=== PATIENT | female | born 1950 | race Caucasian/White ===

== ENCOUNTER 2017-11-09 05:47 | Inpatient (IN) | payer MEDICARE, OTHER, SELFPAY ==
[2017-10-24 11:12] VITALS: BP 164/88; PULSE 59; RESP 16; TEMP 36.9; O2SAT 98; BMI 22.8
--- NOTE | 2017-10-24 11:29 | PCM.HP.BLA ---
History and Physical DATE OF SURGERY: 11/09/2017 SCHEDULED PROCEDURE: Right total knee arthroplasty HISTORY OF PRESENT ILLNESS: This is a 67-year-old female who is been having ongoing pain in her right knee for approximately 2 years. She states over the past 7-8 months the pain has significantly increased. Pain is intermittent, aching, and sharp. Pain is increased with any amount of walking. Pain is also increased going up and down stairs as well as prolonged standing. It occasionally awakens her at night. Patient has to use of pain medication prior to bed. She has difficult time with activities of daily living including shopping. Patient has fallen due to her right knee pain. Patient has tried conservative measures consisting of rest, ice, heat, elevation, and cortisone injection with only minimal relief. She has been on oral medications consisting of meloxicam and ibuprofen with minimal relief on ibuprofen. Patient has tried formal physical therapy with no relief in symptoms. Patient has had a previous right knee arthroscopy in 1999 for torn meniscus. She has tried [id number]-[id number] brace and orthotics with continued pain. After failing conservative measures and discussing all treatment options with Dr. Lo, the patient would like to proceed with a right knee arthroplasty. Patient has obtained surgical clearance from her primary care physician Dr. Viera. Patient does have a medical history pertinent for hypertension and previous blood clot in early . REVIEW OF SYSTEMS: ROS: Const: Denies change in appetite, fever,or weight change. CV: Denies chest pain, heart murmur and irregular heartbeat. Resp: Denies cough, pneumonia, SOB, tuberculosis and wheezing. GI: Denies constipation, diarrhea, difficulty swallowing, heartburn, nausea, bloody stools and vomiting. : . (F Genital Sx) Urinary: denies incontinence. Musculo: Denies leg swelling, limp, trouble walking and weakness. Skin: Denies Raynaud's, history of shingles and tattoo. Neuro: Denies ambulatory dysfunction, dizziness, numbness/tingling and tremor. Psych: Denies anxiety, insomnia and stress. Da/Lymph: Denies anemia, bleeding/bruising tendency and past transfusion. Reviewed, no changes. PAST MEDICAL HISTORY: Advance Care Plan: No Advance Directives Effective Date: 08/22/2017 PMH: Medical Problems: Hard of Hearing, High Blood Pressure, History Of Phlebitis, Hypercholesterolemia Accidents: Other - (09/2017) FALL IN BATHROOM AND TWISTED THE LT KNEE Surgical Hx: Appendectomy - (1997) Hysterectomy - (1997) RT Knee Arthroscopy - (1999) ROSEANN Anesthesia Complications: None Assistive Devices: Hearing Aid, Glasses Reviewed and updated. SOCIAL HISTORY: SH: Marital: .Occupation: Retired.Work Status: Retired.Hand Dominance: Right-handed. Personal Habits: Cigarette Use: Never Smoked Cigarettes.Alcohol: Denies use.Drug Use: Denies Use.Enjoy Exercising: Exercises 1-3 x/month. Reviewed, no changes. VITALS: Ht: 69.5 Wt: 156lb Wt k.762 BMI: 22.7 BP: 144/82 Pulse: 60 Resp: 16 T: 97.7 T: 36.5C ALLERGIES: Chlorthalidone MEDICATIONS: Atenolol 25 mg 1 by mouth every day, Omeprazole 20 mg 1 by mouth every day, Quinapril HCL 10 mg 1 tab PO daily, Fluticasone Nasal [place] uad, Vitamin D (Cholecalciferol) 24545 Unit 1 cap PO every other week, Loratadine 10 mg prn, Aspirin 81 mg 1 by mouth every day, Multi Vitamin 1 by mouth every day, Caltrate 1 tab PO daily, Ibuprofen 200 mg 1po qday PRE-OP EXAM: General appearance:NORMAL Other: Eyes: Conjunctivae and lids: NORMAL Pupils: ERR Ears, Nose, Mouth, and Throat: NORMAL Other: Inspection of lips, teeth and gums: NORMAL Other: Neck: Examination of neck: no masses noted. Respiratory: Assessment of respiratory effort: NORMAL Other: Auscultation of lungs: clear to auscultation no wheeses, ronchi or rales. Cardiovascular: Auscultation of heart: regular rate and rhythm, no murmur, gallops or rubs. Exam of carotid arteries: NORMAL Other: Gastrointestinal: Exam of abdomen: soft, nontender, nondistended bowel sounds present. PHYSICAL EXAMINATION: Patient walks with an antalgic gait. Patient does have positive effusion to the right knee. She has tenderness to palpation of the medial joint line. She has varus alignment which is not correctable. It is stable to varus valgus stress test. Range of motion is 10-110? of flexion. Sensations intact light touch. IMAGING STUDIES: X-rays of the right knee reveal severe tricompartmental osteoarthritis. There is severe joint space narrowing tricompartmentally with large osteophytes and bony erosions in the medial lateral compartments. IMPRESSION: 1. Severe right knee osteoarthritis 2. Hypertension 3. History of blood clot 4. Hypercholesterolemia PLAN: Dr. Lo did discuss and review with the patient all treatment options including surgical versus nonsurgical. Patient wishes to proceed with above-stated procedure. Potential risks, benefits, and complications of this procedure were discussed in detail including but not limited to , infection, nerve and blood vessel damage, persistent pain, numbness, tingling, paresthesias, blood clot, pulmonary embolism, and requirement for further surgery. The patient expressed full understanding has no further questions for the doctor. Patient does agree to proceed with the above-stated procedure and has signed the surgery consent form. ___ I have re-examined the patient. There are no clinical changes since date of exam. ___ See progress notes for changes. ___ Dictated on admission Date: Time: Signature:
--- NOTE | 2017-10-24 11:36 | HP.PCM_ITS ---
History and Physical DATE OF SURGERY: 11/09/2017 SCHEDULED PROCEDURE: Right total knee arthroplasty HISTORY OF PRESENT ILLNESS: This is a 67-year-old female who is been having ongoing pain in her right knee for approximately 2 years. She states over the past 7-8 months the pain has significantly increased. Pain is intermittent, aching, and sharp. Pain is increased with any amount of walking. Pain is also increased going up and down stairs as well as prolonged standing. It occasionally awakens her at night. Patient has to use of pain medication prior to bed. She has difficult time with activities of daily living including shopping. Patient has fallen due to her right knee pain. Patient has tried conservative measures consisting of rest , ice, heat, elevation, and cortisone injection with only minimal relief. She has been on oral medications consisting of meloxicam and ibuprofen with minimal relief on ibuprofen. Patient has tried formal physical therapy with no relief in symptoms. Patient has had a previous right knee arthroscopy in 1999 for torn meniscus. She has tried [id number] brace and orthotics with continued pain. After failing conservative measures and discussing all treatment options with Dr. Lo, the patient would like to proceed with a right knee arthroplasty. Patient has obtained surgical clearance from her primary care physician Dr. Viera. Patient does have a medical history pertinent for hypertension and previous blood clot in early . REVIEW OF SYSTEMS: ROS: Const: Denies change in appetite, fever,or weight change. CV: Denies chest pain, heart murmur and irregular heartbeat. Resp: Denies cough, pneumonia, SOB, tuberculosis and wheezing. GI: Denies constipation, diarrhea, difficulty swallowing, heartburn, nausea, bloody stools and vomiting. : . (F Genital Sx) Urinary: denies incontinence. Musculo: Denies leg swelling, limp, trouble walking and weakness. Skin: Denies Raynaud's, history of shingles and tattoo. Neuro: Denies ambulatory dysfunction, dizziness, numbness/tingling and tremor. Psych: Denies anxiety, insomnia and stress. Da/Lymph: Denies anemia, bleeding/bruising tendency and past transfusion. Reviewed, no changes. PAST MEDICAL HISTORY: Advance Care Plan: No Advance Directives Effective Date: 08/22/2017 PMH: Medical Problems: Hard of Hearing, High Blood Pressure, History Of Phlebitis, Hypercholesterolemia Accidents: Other - (09/2017) FALL IN BATHROOM AND TWISTED THE LT KNEE Surgical Hx: Appendectomy - (1997) Hysterectomy - (1997) RT Knee Arthroscopy - (1999) ROSEANN Anesthesia Complications: None Assistive Devices: Hearing Aid, Glasses Reviewed and updated. SOCIAL HISTORY: SH: Marital: .Occupation: Retired.Work Status: Retired.Hand Dominance: Right- handed. Personal Habits: Cigarette Use: Never Smoked Cigarettes.Alcohol: Denies use.Drug Use: Denies Use.Enjoy Exercising: Exercises 1-3 x/month. Reviewed, no changes. VITALS: Ht: 69.5 Wt: 156lb Wt k.762 BMI: 22.7 BP: 144/82 Pulse: 60 Resp: 16 T: 97.7 T: 36.5C ALLERGIES: Chlorthalidone MEDICATIONS: Atenolol 25 mg 1 by mouth every day, Omeprazole 20 mg 1 by mouth every day, Quinapril HCL 10 mg 1 tab PO daily, Fluticasone Nasal [place] uad, Vitamin D ( Cholecalciferol) 41054 Unit 1 cap PO every other week, Loratadine 10 mg prn, Aspirin 81 mg 1 by mouth every day, Multi Vitamin 1 by mouth every day, Caltrate 1 tab PO daily, Ibuprofen 200 mg 1po qday PRE-OP EXAM: General appearance:NORMAL Other: Eyes: Conjunctivae and lids: NORMAL Pupils: ERR Ears, Nose, Mouth, and Throat: NORMAL Other: Inspection of lips, teeth and gums: NORMAL Other: Neck: Examination of neck: no masses noted. Respiratory: Assessment of respiratory effort: NORMAL Other: Auscultation of lungs: clear to auscultation no wheeses, ronchi or rales. Cardiovascular: Auscultation of heart: regular rate and rhythm, no murmur, gallops or rubs. Exam of carotid arteries: NORMAL Other: Gastrointestinal: Exam of abdomen: soft, nontender, nondistended bowel sounds present. PHYSICAL EXAMINATION: Patient walks with an antalgic gait. Patient does have positive effusion to the right knee. She has tenderness to palpation of the medial joint line. She has varus alignment which is not correctable. It is stable to varus valgus stress test. Range of motion is 10-110? of flexion. Sensations intact light touch. IMAGING STUDIES: X-rays of the right knee reveal severe tricompartmental osteoarthritis. There is severe joint space narrowing tricompartmentally with large osteophytes and bony erosions in the medial lateral compartments. IMPRESSION: 1. Severe right knee osteoarthritis 2. Hypertension 3. History of blood clot 4. Hypercholesterolemia PLAN: Dr. Lo did discuss and review with the patient all treatment options including surgical versus nonsurgical. Patient wishes to proceed with above- stated procedure. Potential risks, benefits, and complications of this procedure were discussed in detail including but not limited to , infection , nerve and blood vessel damage, persistent pain, numbness, tingling, paresthesias, blood clot, pulmonary embolism, and requirement for further surgery. The patient expressed full understanding has no further questions for the doctor. Patient does agree to proceed with the above-stated procedure and has signed the surgery consent form. ___ I have re-examined the patient. There are no clinical changes since date of exam. ___ See progress notes for changes. ___ Dictated on admission Date: Time: Signature:
[2017-11-09] VITALS (10 sets, daily range): BP systolic 113–172; BP diastolic 63–96; PULSE 57–86; RESP 14–18; TEMP 36.3–36.9; O2SAT 94–98; BMI 22.8; BMI 22.9
[2017-11-09] MEDS: Celecoxib 200 MG Capsule 400 MG PO (06:23)
[2017-11-09] MEDS: oxyCODONE HCl Cr 10 MG Tablet PO (06:23)
[2017-11-09] MEDS: Acetaminophen 500 MG Tablet 1000 MG PO ×3 (06:24→21:30)
[2017-11-09] MEDS: Lactated Ringers 1,000 ML 999 ML IV (06:50)
[2017-11-09] MEDS: CEFAZOLIN IV (07:17)
--- NOTE | 2017-11-09 07:22 | PCM.OPRPT ---
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 Wilbur size 4 triathlon cruciate retaining distal femoral component 2. William size 4 universal tibial baseplate 3. William X3 11 mm CS polyethylene 4. Wilbur X3 35 mm asymmetric patella Brief history operative indications: 67-year-old F with history of right knee osteoarthritis with radiographic findings with loss of joint space, osteophyte formation and subchondral sclerosis. Failed conservative measures as mentioned in the H&P. Discussion of total knee arthroplasty as well as risk and benefits were discussed the patient including but not limited to blood loss, DVTs, PEs, neurovascular damage, general risk of anesthesia including loss of life, and stiffness or instability were discussed with patient. Patient demonstrated understanding and was able to sign informed consent. Procedure: On the date of procedure patient's right lower extremity was marked in the preoperative area. The patient was then taken back to the operating room where the patient was placed on the table in the supine position. All bony prominences were identified a well-padded. Anesthesia assumed control of the C-spine and airway and remained controlled throughout the remainder of the procedure. A tourniquet was placed on the right upper thigh and the leg was prepped in a sterile fashion. The surgeon then scrubbed at this time. Upon reentering the room the right lower extremity was draped in a standard orthopedic fashion. A timeout was then called and everyone agreed upon the side, the site, the procedure to be performed, patient's identity and antibiotics given. Esmarch bandage was used to exsanguinate the extremity and the tourniquet was placed up to 250 mmHg with the knee in flexion. A midline skin incision was made and sharp dissection was taken down through skin subcutaneous tissue and fat. The standard medial parapatellar incision was made and the patella was subluxed laterally. The standard deep MCL release was done and the fat pad was resected. Next our attention was directed to the femur. Navigation pins were placed, navigation was registered. The distal femoral cutting block was pinned into place and 10 mm of distal femur resection was completed. The distal femoral cut was verified with navigation. The knee was then placed in deep flexion in the standard [employer] sizing guide was used to place the femoral component in 3? external rotation based on the posterior condyles. A size 4 4-in-1 cutting block was selected and pinned into place. The anterior cut was then made and checked for notching. The subsequent anterior chamfer cuts, posterior condylar cuts and posterior chamfer cuts were made while ensuring the MCL and LCL were protected. Our attention was then turned to the tibia where the navigation pins were placed, navigation was registered. [employer] tibial cutting guide was used to make the appropriate tibial cut 90 degrees from the mechanical axis. Navigation was then used to verify the cut. A size 4 tibial base plate was selected. the knee was flexed to 90 degrees and the soft tissues and posterior osteophytes were removed from the joint. 40 cc of the periarticular injection was injected into the posterior medial corner of the joint. The appropriate trials were then placed on the femur and tibia. A trial polyethylene was trialed to ensure proper balancing and stability of the knee. Patella tracking, was then verified and corrected appropriately as needed. The appropriate tibial internal rotation was then marked with a bovie. Our attention was then directed to the patella. The patella was everted and a flat resection was made. The lug holes were drilled and the patella trial was placed. Patellar tracking was checked and deemed appropriate. Once we were happy lug holes were drilled for the femur and trial components were removed. the tibia was subluxed and pinned into place and the keel was punched and the canal was reamed. Final components were verified and opened, and cement was mixed in a vacuum. Wilbur Simplex cement was used. The wound was copiously irrigated with normal saline. When the cement was ready the components were cemented into place starting with the tibia, femur and finally the patella. The trial poly component was placed and the knee was placed in full extension. All excess cement was removed in the process. Once the cement had cured the tracking, alignment and balance were verified and a size 11 mm polyethylene component was placed. Once the final components were placed the wound was copiously irrigated with normal saline solution and the periarticular injection was given. The wound was closed in a layer pinto fashion using #1 vicryl interrupted sutures for the arthrotomy, 2-0 interrupted Vicryl suture for the subcuticular layer and kristy for final skin closure. A sterile compressive dressing was then placed. The patient was then awakened from anesthesia, transferred to the rweir and transferred to the PACU for recovery. Post op plan DVT ppx: ASA 325mg, thigh high compression stockings Follow up: in office in 2 weeks for wound check PT: to start POD #0 at hospital, outpatient PT should be arranged. Grafts/Implants Used: William triathlon total knee - Complications none - Admit VTE Documentation VTE Present on Admission: No VTE Mechan Device Prophylaxis: SCD's, Thigh High JENNIFER Hose VTE Pharm Prophylaxis ordered?: Yes
--- NOTE | 2017-11-09 09:15 | RAD_ITS ---
STUDY: X-RAY - RIGHT KNEE REASON FOR EXAM: Female, 67 years old. Total knee replacement. TECHNIQUE: 2 view(s) of the knee. COMPARISON: None. FINDINGS: The patient is status post total knee replacement. There is good alignment. Postoperative soft tissue changes. RAD/Knee 1 or 2 Views IMPRESSION: Total knee replacement. There is good alignment. Postoperative soft tissue changes. Electronically Signed: Keegan Campos MD at 9:34 EDT Tel [phone], Service support ,
[2017-11-09] MEDS: Scopolamine 1mg/72hr Patch 1 PATCH TD (10:43)
[2017-11-09] MEDS: Calcium (Elemental) 500 MG Tablet PO (10:43)
[2017-11-09] MEDS: Famotidine 20 MG Tablet PO (10:43)
[2017-11-09] MEDS: Senna/Docusate Sodium 1 Tablet 2 TABLET PO ×2 (10:44→21:30)
[2017-11-09] MEDS: Lactated Ringers 1,000 ML 125 ML IV (14:25)
[2017-11-09] MEDS: Cefazolin 1 GM/50 ML BAG IV ×2 (14:25→22:34)
[2017-11-10] MEDS: oxyCODONE 5 MG Tablet PO ×4 (02:21→19:07)
[2017-11-10 02:23] VITALS: BP 157/85; PULSE 69; RESP 16; TEMP 36.9; O2SAT 100
[2017-11-10] MEDS: Rivaroxaban 10 MG Tablet PO (05:07)
[2017-11-10] MEDS: Acetaminophen 500 MG Tablet 1000 MG PO ×3 (05:07→21:03)
--- NOTE | 2017-11-10 06:10 | PCM.PN.ORT ---
Subjective: Is doing well this morning. Denies any chest pain or shortness of breath. Pain is well controlled at this time however, she states over last hour or so she is beginning to feel more pain as the block wears off. Denies any numbness and tingling distally. No acute events were noted overnight. Objective: Postoperative radiographs reveal a stable well aligned right total knee replacement - Physical Exam General: Alert, Oriented x3, Cooperative Extremities: - - Right lower extremity: Dressing has small outlined stable distal area of saturation dry and intact Sensations intact to light touch saphenous, sural, superficial peroneal, deep peroneal, and tibial distributions Motors intact EHL, DF, PF calves are soft and supple Vital Signs Temp Pulse Resp BP Pulse Ox 98.4 F 69 16 157/85 H 100 11/10/17 02:23 11/10/17 02:23 11/10/17 02:23 11/10/17 02:23 11/10/17 02:23 Oxygen Delivery Method Room Air Weight: 160 lb 0.008 oz Body Mass Index (BMI) 22.9 Intake and Output for Last 24 Hours 11/08/17 11/09/17 11/10/17 23:59 23:59 23:59 Intake Total 3249 / 3249 901 / 901 Balance 3249 / 3249 901 / 901 Medical Necessity - Tobacco Use Smoking Status: Former smoker Assessment/Plan Postop day 1 right total knee replacement 1. DVT prophylaxis: Aspirin 2. Pain control: Currently well controlled with aspirin and oxycodone continue with current regimen 3. Physical therapy: Weight-bear as tolerated activity as tolerated 4. Disposition: Patient is doing well at this time will reassess later today to determine discharge likely today. [facility] Office:
--- NOTE | 2017-11-10 06:13 | PN.ORTHO_ITS ---
Subjective: Is doing well this morning. Denies any chest pain or shortness of breath. Pain is well controlled at this time however, she states over last hour or so she is beginning to feel more pain as the block wears off. Denies any numbness and tingling distally. No acute events were noted overnight. Objective: Postoperative radiographs reveal a stable well aligned right total knee replacement - Physical Exam General: Alert, Oriented x3, Cooperative Extremities: - - Right lower extremity: Dressing has small outlined stable distal area of saturation dry and intact Sensations intact to light touch saphenous, sural, superficial peroneal, deep peroneal, and tibial distributions Motors intact EHL, DF, PF calves are soft and supple Vital Signs Temp Pulse Resp BP Pulse Ox 98.4 F 69 16 157/85 H 100 11/10/17 02:23 11/10/17 02:23 11/10/17 02:23 11/10/17 02:23 11/10/17 02:23 Oxygen Delivery Method Room Air Weight: 160 lb 0.008 oz Body Mass Index (BMI) 22.9 Intake and Output for Last 24 Hours 11/08/17 11/09/17 11/10/17 23:59 23:59 23:59 Intake Total 3249 / 3249 901 / 901 Balance 3249 / 3249 901 / 901 Medical Necessity - Tobacco Use Smoking Status: Former smoker Assessment/Plan Postop day 1 right total knee replacement 1. DVT prophylaxis: Aspirin 2. Pain control: Currently well controlled with aspirin and oxycodone continue with current regimen 3. Physical therapy: Weight-bear as tolerated activity as tolerated 4. Disposition: Patient is doing well at this time will reassess later today to determine discharge likely today. [facility] Office:
[2017-11-10 07:44] LABS: Hemoglobin 12.8 g/dl (12.0-15.0); Mean Corp Hgb Conc 33.7 g/gl (32-36); Mean Corpuscular Hgb 30.6 pg (27.0-32.0); Mean Corpuscular Volume 90.9 fL (81-99); Mean Platelet Vol. 9.6 fl (6.2-12.0); Platelet Count 229 K/mm3 (150-450); RBC Distribution Width CV 12.4 % (11.6-14.6); RBC Distribution Width SD 40.5 fl (35.1-43.9); Red Blood Count 4.18 M/mm3 (4.2-5.4); White Blood Count 10.5 K/mm3 (4.4-11.0)
[2017-11-10 07:48] LABS: Scan Indicated on CBC? Y/N NO
[2017-11-10 07:58] LABS: Anion Gap 8 (5-15); BUN 13 mg/dL (7-18); BUN/Creat Ratio 17.9 RATIO (10-20); Calcium,Total 8.5 mg/dL (8.5-10.1); Chloride 109 mmol/L (98-107); Creatinine, Serum 0.73 mg/dL (0.55-1.02); EST Glomerular Filtration Rate 84 mL/min (>60); Est Glom Filt Rate - Afr Amer 102 mL/min (>60); Estimated Creatinine Clearance 58.23 ml/min; Glucose 81 mg/dL (74-106); Potassium 3.6 mmol/L (3.5-5.1); Sodium Level 142 mmol/L (136-145)
[2017-11-10 08:15] VITALS: BP 138/72; PULSE 63; RESP 16; TEMP 37; O2SAT 98
[2017-11-10] MEDS: Calcium (Elemental) 500 MG Tablet PO (08:19)
[2017-11-10] MEDS: Multivitamins,Therapeutic Tablet 1 TABLET PO (08:19)
--- NOTE | 2017-11-10 10:33 | CASEMGMT ---
DOTTIE JANG Face to Face with patient for initial transition planning/care coordination assessment. RN LAINE introduced self and role at [facility] [place]. Patient lying in bed, alert and oriented. Patient willing to participate in assessment and is able to answer all questions appropriately. Care providers, pharmacy, and demographics verified. See link attached. Patient wishes to discharge home and is setup with outpatient therapy with [facility] with spouse providing transportation. Patient states she has no further needs or concerns at this time. CM to follow for discharge planning needs that may arise. Disposition Plan: Patient to discharge home with outpatient, family support, and follow-up plans in place.
[2017-11-10] MEDS: Famotidine 20 MG Tablet PO (11:04)
[2017-11-10] MEDS: Lisinopril 10 MG Tablet PO (11:04)
[2017-11-10] MEDS: Pantoprazole Sodium 20 MG Tablet PO (11:04)
[2017-11-10] MEDS: Senna/Docusate Sodium 1 Tablet 2 TABLET PO ×2 (11:04→21:03)
[2017-11-10] MEDS: Atenolol 25 MG Tablet PO (11:04)
[2017-11-10 11:10] VITALS: PULSE 76
[2017-11-10 14:51] VITALS: BP 193/101; PULSE 71; RESP 16; TEMP 36.7; O2SAT 93
[2017-11-10 21:05] VITALS: BP 157/86; PULSE 71; RESP 14; TEMP 37.4; O2SAT 98
[2017-11-11 02:51] VITALS: BP 161/90; PULSE 78; RESP 14; TEMP 37; O2SAT 96
[2017-11-11] MEDS: Acetaminophen 500 MG Tablet 1000 MG PO (05:37)
[2017-11-11] MEDS: Rivaroxaban 10 MG Tablet PO (05:37)
[2017-11-11 07:14] LABS: Hematocrit 43.5 % (37-47); Hemoglobin 14.5 g/dl (12.0-15.0); Mean Corp Hgb Conc 33.3 g/gl (32-36); Mean Corpuscular Volume 90.1 fL (81-99); Mean Platelet Vol. 9.7 fl (6.2-12.0); Platelet Count 237 K/mm3 (150-450); RBC Distribution Width CV 12.7 % (11.6-14.6); RBC Distribution Width SD 41.8 fl (35.1-43.9); Red Blood Count 4.83 M/mm3 (4.2-5.4); White Blood Count 9.2 K/mm3 (4.4-11.0)
[2017-11-11 07:16] LABS: Scan Indicated on CBC? Y/N NO
[2017-11-11 07:28] VITALS: BP 145/97; PULSE 87; RESP 18; TEMP 36.8; O2SAT 95
[2017-11-11 07:34] LABS: Anion Gap 9 (5-15); BUN 10 mg/dL (7-18); Calcium,Total 8.7 mg/dL (8.5-10.1); Chloride 107 mmol/L (98-107); Creatinine, Serum 0.56 mg/dL (0.55-1.02); EST Glomerular Filtration Rate 115 mL/min (>60); Est Glom Filt Rate - Afr Amer 140 mL/min (>60); Estimated Creatinine Clearance 58.23 ml/min; Glucose 104 mg/dL (74-106); Potassium 3.5 mmol/L (3.5-5.1); Sodium Level 141 mmol/L (136-145)
[2017-11-11] MEDS: Calcium (Elemental) 500 MG Tablet PO (07:34)
[2017-11-11] MEDS: Pantoprazole Sodium 20 MG Tablet PO (07:34)
[2017-11-11] MEDS: Famotidine 20 MG Tablet PO (07:34)
[2017-11-11] MEDS: Multivitamins,Therapeutic Tablet 1 TABLET PO (07:34)
[2017-11-11] MEDS: Lisinopril 10 MG Tablet PO (07:35)
[2017-11-11] MEDS: Atenolol 25 MG Tablet PO (07:35)
--- NOTE | 2017-11-11 07:38 | PCM.PN.ORT ---
Subjective: The patient was sitting in bed upon examination. Patient denies any chest pain, shortness of breath, dizziness, lightheadedness, nausea or vomiting, or calf pain. Pain is controlled on medications. No adverse overnight events. Overall patient is doing well and feels better today. Patient does wish to go home today. Objective: Vital signs stable and afebrile. Patient is able to plantarflex and dorsiflex actively. Sensation is intact to light touch to saphenous, sural, superficial and deep peroneal, and tibial distribution. Dressing with one drop of drainage which is been stable over main dressing, minimal drainage which is been stable on distal dressing. Negative Homans bilaterally, negative signs and symptoms of DVT. - Physical Exam General: Alert, Oriented x3, Cooperative, No apparent distress Vital Signs Temp Pulse Resp BP Pulse Ox 98.2 F 87 18 145/97 H 95 11/11/17 07:28 11/11/17 07:28 11/11/17 07:28 11/11/17 07:28 11/11/17 07:28 Oxygen Delivery Method Room Air Weight: 72.575 kg Body Mass Index (BMI) 22.9 Intake and Output for Last 24 Hours 11/09/17 11/10/17 11/11/17 23:59 23:59 23:59 Intake Total 3249 / 3249 901 / 901 300 / 300 Balance 3249 / 3249 901 / 901 300 / 300 Laboratory Tests Past 24 Hrs 11/10/17 11/10/17 11/11/17 06:09 06:09 05:35 WBC 10.5 9.2 RBC 4.18 L 4.83 Hgb 12.8 14.5 Hct 38.0 43.5 MCV 90.9 90.1 MCH 30.6 30.0 MCHC 33.7 33.3 RDW 12.4 12.7 RDW Differential 40.5 41.8 Plt Count 229 237 MPV 9.6 9.7 Sodium 142 Potassium 3.6 Chloride 109 H Carbon Dioxide 25.0 Anion Gap 8 BUN 13 Creatinine 0.73 Estim Creat Clear Calc 58.23 Est GFR (MDRD) Af Amer 102 Est GFR (MDRD) Non-Af 84 BUN/Creatinine Ratio 17.9 Glucose 81 Calcium 8.5 11/11/17 05:35 WBC RBC Hgb Hct MCV MCH MCHC RDW RDW Differential Plt Count MPV Sodium 141 Potassium 3.5 Chloride 107 Carbon Dioxide 25.0 Anion Gap 9 BUN 10 Creatinine 0.56 Estim Creat Clear Calc 58.23 Est GFR (MDRD) Af Amer 140 Est GFR (MDRD) Non-Af 115 BUN/Creatinine Ratio 18.0 Glucose 104 Calcium 8.7 Medical Necessity - Tobacco Use Smoking Status: Former smoker Assessment/Plan 1. S/P right total knee arthroplasty POD #2 2. Continue Pain Medications: Tylenol and OxyIR 3. DVT Prophylaxis: Xarelto 4. PT/OT: Weightbearing as tolerated 5. H & H: 14.5/43.5, asymptomatic 6. Encouraged Incentive Spirometry 7. Disposition: Orthopedically stable, plan is for discharge home this afternoon. Patient will follow-up per postop instructions. Prescriptions have been E scribed to [facility].
--- NOTE | 2017-11-11 07:47 | DCINST_ITS ---
Discharge Diet: No Restrictions Discharge Activity: May Not Drive May shower in (days): 1 - Turned dressing away from water Ice area for (Minutes): 20 - every hour while awake. Weight Bearing Status: Weight bearing as tolerated Elevate: Operative Extremity Additional Activity Instructions:: Wear elastic stockings for 2 weeks after your surgery. Call your doctor if your incision/area has: Continuous Slow Oozing, Sudden Increased Bleeding, Increased Pain/ Swelling, Increased Redness, Foul Smelling Discharge Call your doctor if you observe: Fever of 101 or Higher, Coldness, Increased Pain, Numbness or Tingling, Change in Color, Calf discomfort, Uncontrolled pain Remove Dressing in (days):: 3 - Okay to remove on November 14, 2017 Additional Instructions: Follow [facility] postop instructions Allergies/Adverse Reactions: Allergies chlorthalidone Adverse Reaction (Verified 10/24/17 11:05) Other Medications to take at Discharge Atenolol [Tenormin (beta court)] 25 mg PO DAILY 09/20/13 Calcium (Elemental) [Caltrate-600] 600 mg PO DAILY@0800 09/20/13 Ergocalciferol [Vitamin D] 50,000 unit PO Q7D 09/20/13 Omeprazole [Prilosec] 20 mg PO DAILY 09/20/13 Quinapril HCl [Accupril] 10 mg PO DAILY 09/20/13 Aspirin [Aspir-Low] 81 mg PO DAILY 10/24/17 Fluticasone 0.05% [Flonase Nasal [place]] 1 spray NASAL DAILY PRN 10/24/17 Loratadine [Claritin] 10 mg PO DAILY PRN 10/24/17 Multivitamin [Multiple Vitamins] 1 each PO DAILY 10/24/17 Acetaminophen [Tylenol] 1,000 mg PO Q8 #90 tab 11/11/17 Oxycodone [Oxyir] 5 - 10 mg PO Q4H PRN PRN 7 Days #80 tablet 11/11/17 Rivaroxaban [Xarelto] 10 mg PO DAILY@0600 #12 tab 11/11/17 The following prescriptions were given: Oxycodone [Oxyir] 5 - 10 mg PO Q4H PRN PRN 7 Days #80 tablet PRN Reason: Mod-Severe Pain (4-10/10) Acetaminophen [Tylenol] 1,000 mg PO Q8 #90 tab Rivaroxaban [Xarelto] 10 mg PO DAILY@0600 #12 tab Primary Care Physician: Neela Viera MD [Primary Care Provider] - Please Follow Up With: [facility] When: 11/14/17 @ 10:30 am with Sushant Please Follow Up With: Andreas De La O PA-C When: 11/23/17 @ 10:30 am
[2017-11-11] MEDS: oxyCODONE 5 MG Tablet PO (09:50)
[2017-11-11 11:04] VITALS: BP 159/90; PULSE 61; RESP 18; TEMP 36.6; O2SAT 96
[2017-11-11 11:24] VITALS: BP 159/90; PULSE 61; RESP 18; TEMP 36.6; O2SAT 96
== END 2017-11-11 11:19 | disposition home or self-care (01) | DRG 470 ==
LOC: ACINP 05:48 → MS3 08:15
PROVIDERS: Admitting Provider Specialist; Family Provider Internal Medicine; PCP Internal Medicine; Visit Provider Specialist
PROC: 0SRC0J9 Replacement of Right Knee Joint with Synthetic Substitute, Cemented, Open Approach (ICD-10-PCS; CPT 27447; principal; 2017-11-09 06:45)
DX: M17.11 Unilateral primary osteoarthritis, right knee (principal); I10 Essential (primary) hypertension; E78.00 Pure hypercholesterolemia, unspecified; K21.9 Gastro-esophageal reflux disease without esophagitis; Z87.891 Personal history of nicotine dependence; Z86.718 Personal history of other venous thrombosis and embolism; Z85.828 Personal history of other malignant neoplasm of skin
CPT/HCPCS: 36415; 73560; 80048; 85027; 87081; 97110; 97162; 97165; 97530; 97802; 99251; J7120; G0463; J2405

== ENCOUNTER → 2017-12-28 08:35 | Outpatient (CLI) | payer MEDICARE, OTHER, SELFPAY ==
--- NOTE | 2017-12-28 08:45 | RAD_ITS ---
PROCEDURE: Fluoroscopic guided right shoulder Injection DATE: December 28, 2017. INDICATION: Female, 67 years old. Chronic shoulder pain. PHYSICIAN: Keegan Campos M.D. MEDICATIONS: 12 mg of betamethasone and 4 cc of 1% lidocaine. 2% Lidocaine administered subcutaneously for local anesthesia. ACCESS SITE: Right shoulder. NEEDLE: 22-gauge spinal needle. FLUOROSCOPY TIME (if supplied): (0:54) minutes/seconds FINDINGS: The risks, benefits, and alternatives to the procedure were explained to the patient. The specific risks of bleeding, infection, and neurovascular injury were detailed and accepted. Witnessed informed consent was obtained. A 22-gauge spinal needle was positioned under radiographic fluoroscopic localization. Approximately 2 cc of Isovue-300 instilled for localization purposes. Medication was then injected. The patient tolerated the procedure well without any immediate complications. The patient was placed supine with head elevated and returned to the floor in stable condition. RAD/Inj/Asp Duarte Jt Should/Hip/Knee IMPRESSION: 1. Successful fluoroscopic guided right shoulder injection. Electronically Signed: Keegan Campos MD at 10:55 EDT Tel [phone], Service support ,
--- NOTE | 2017-12-28 08:45 | RAD_ITS ---
PROCEDURE: Fluoroscopic guided left shoulder Injection DATE: December 28, 2017. INDICATION: Female, 67 years old. Chronic shoulder pain. PHYSICIAN: Keegan Campos M.D. MEDICATIONS: 12 mg of dexamethasone and 4 cc of 1% lidocaine. 2% Lidocaine administered subcutaneously for local anesthesia. ACCESS SITE: Left shoulder. NEEDLE: 22-gauge spinal needle. FLUOROSCOPY TIME (if supplied): (0:56) minutes/seconds FINDINGS: The risks, benefits, and alternatives to the procedure were explained to the patient. The specific risks of bleeding, infection, and neurovascular injury were detailed and accepted. Witnessed informed consent was obtained. A 22-gauge spinal needle was positioned under radiographic fluoroscopic localization. Approximately 2 cc of Isovue-300 instilled for localization purposes. Medication was then injected. The patient tolerated the procedure well without any immediate complications. The patient was placed supine with head elevated and returned to the floor in stable condition. RAD/Inj/Asp Duarte Jt Should/Hip/Knee IMPRESSION: 1. Successful fluoroscopic guided left shoulder injection. Electronically Signed: Keegan Campos MD at 10:58 EDT Tel [phone], Service support ,
== END ==
PROVIDERS: Family Provider Internal Medicine; PCP Internal Medicine; Visit Provider Specialist
DX: M19.011 Primary osteoarthritis, right shoulder (principal); M19.012 Primary osteoarthritis, left shoulder
CPT/HCPCS: 20610; 77002; Q9967; J0702

== ENCOUNTER → 2019-04-17 08:41 | Outpatient (CLI) | payer MEDICARE, OTHER, SELFPAY ==
[2017-11-09 10:33] VITALS: BMI 22.9
--- NOTE | 2019-04-17 08:54 | RAD_ITS ---
PROCEDURE: Fluoroscopic guided right shoulder Injection DATE: April 17, 2019 INDICATION: Female, 69 years old. Chronic shoulder pain. PHYSICIAN: Keegan Campos M.D. MEDICATIONS: 12 mg of betamethasone and 4 cc of 1% lidocaine. 2% lidocaine administered subcutaneously for local anesthesia. ACCESS SITE: Right shoulder. NEEDLE: 22-gauge spinal needle. FLUOROSCOPY TIME (if supplied): (0:27) minutes/seconds FINDINGS: The risks, benefits, and alternatives to the procedure were explained to the patient. The specific risks of bleeding, infection, and neurovascular injury were detailed and accepted. Witnessed informed consent was obtained. A 22-gauge spinal needle was positioned under radiographic fluoroscopic localization. Approximately 2 cc of ICU 300 instilled for localization purposes. Medication was then injected. The patient tolerated the procedure well without any immediate complications. RAD/Inj/Asp Duarte Jt Should/Hip/Knee IMPRESSION: 1. Successful fluoroscopic guided right shoulder injection. Electronically Signed: Keegan Campos, at 10:45 EDT , Service support ,
--- NOTE | 2019-04-17 09:25 | RAD_ITS ---
PROCEDURE: Fluoroscopic guided left shoulder Injection DATE: April 17, 2019 INDICATION: Female, 69 years old. Left shoulder pain. PHYSICIAN: Keegan Campos M.D. MEDICATIONS: 12 mg of betamethasone and 4 cc of 1% lidocaine. 2% lidocaine administered subcutaneously for local anesthesia. ACCESS SITE: Left shoulder. NEEDLE: 22-gauge spinal needle. FLUOROSCOPY TIME (if supplied): (0:34) minutes/seconds FINDINGS: The risks, benefits, and alternatives to the procedure were explained to the patient. The specific risks of bleeding, infection, and neurovascular injury were detailed and accepted. Witnessed informed consent was obtained. A 22-gauge spinal needle was positioned under radiographic fluoroscopic localization. Approximately 2 cc of ICU 300 instilled for localization purposes. Medication was then injected. The patient tolerated the procedure well without any immediate complications. RAD/Inj/Asp Duarte Jt Should/Hip/Knee IMPRESSION: 1. Successful fluoroscopic guided left shoulder injection. Electronically Signed: Keegan Campos, at 10:43 EDT , Service support ,
== END ==
PROVIDERS: Family Provider Internal Medicine; PCP Internal Medicine; Referring Provider Specialist; Visit Provider Specialist
DX: M19.011 Primary osteoarthritis, right shoulder (principal); M19.012 Primary osteoarthritis, left shoulder
CPT/HCPCS: 20610; 77002; Q9967; J0702

== ENCOUNTER → 2019-04-18 10:33 | Outpatient (CLI) | payer MEDICARE, OTHER, SELFPAY ==
[2017-11-09 10:33] VITALS: BMI 22.9
--- NOTE | 2019-04-17 18:46 | PCM.HP.BLA ---
History and Physical Date of Admission: 04/17/19 HISTORY AND PHYSICAL - BREAST COMPLAINT ? Bonnie Palma 1950 ? ? REFERRING PHYSICIAN: ??Neela Viera MD ? CHIEF COMPLAINT:???Left breast microcalcifications ? HPI: The patient is a 69 year old female with a complaint of?an abnormal mammogram. ?The patient had a mammogram on March 27, 2019?which demonstrated: ? IMPRESSION: SUSPICIOUS OF MALIGNANCY The multiple calcifications in the left breast are at an intermediate suspicion for malignancy. ?A stereotactic biopsy is recommended. ? There are multiple calcifications in the left breast superior medial quadrant posterior depth. No other significant masses or calcifications are seen in the breast. ? The patient denies a history of breast masses. ?She does not??perform a self breast exam routinely. ?She notes no skin changes. ?She denies nipple discharge. ?She notes no axillary masses. ?She notes no family history of breast problems. ?She notes no significant breast trauma or breast difficulties in the past. ? ? The patient is being seen by me today at the request of Dr.?Neela Viera MD?for my opinion and advice regarding abnormal?left breast imaging/microcalcifications.? ? PAST?MEDICAL?HISTORY PAST MEDICAL HISTORY Diagnosis Date ? Allergic rhinitis, cause unspecified ? ? Allergic rhinitis ? BCC (basal cell carcinoma), face January 2015 ? [facility] [place]--just above right lip corner ? DDD (degenerative disc disease), lumbar ? ? Disorder of bone and cartilage, unspecified ? ? Diverticulosis of colon (without mention of hemorrhage) ? ? Mitral valve disorders(424.0) ? ? Nausea and vomiting 07/20/09-07/22/09 ? missed flight ? PMH - PAST MEDICAL HISTORY OF ? ? dvt ? PMH - PAST MEDICAL HISTORY OF ? ? tendonitis left foot ? Pure hypercholesterolemia ? ? Unspecified essential hypertension ? ? Uses hearing aid 2014 ? bilateral ? PAST?SURGICAL?HISTORY PAST SURGICAL HISTORY Procedure Laterality Date ? APPENDECTOMY ? 1996 ? BREAST BIOPSY Right ? ? right breast, benign ? COLONOSCOP W/ OR W/O [facility] SPEC ? 05/12/09 ? Colonoscopy ? KNEE SCOPE,DIAGNOSTIC Right 1999 ? Arthroscopy, knee right ? PAST SURGICAL HISTORY OF ? mid ? cardiac cath OK ? REMOVAL OF OVARY/TUBE(S) ? 1996 ? Salpingo-oophorectomy bilateral ? TOTAL ABDOM HYSTERECTOMY ? 1996 ? Hysterectomy, SUKHWINDER for benign condition ? TOTAL KNEE REPLACEMENT Right 11/16/2018 ? ? ? CURRENT?MEDICATIONS Current Outpatient Medications Medication Sig Dispense Refill ? quinapril (ACCUPRIL) 5 mg tablet Take 1 tablet by mouth once daily. (Takes with 10 mg dose of quinapril) 90 tablet 3 ? atenolol (TENORMIN) 25 mg tablet Take 1 tablet by mouth once daily. 90 tablet 3 ? omeprazole (PRILOSEC) 20 mg capsule Take 1 capsule by mouth once daily. 90 capsule 3 ? quinapril (ACCUPRIL) 10 mg tablet Take 1 tablet by mouth once daily. 90 tablet 3 ? ibuprofen (MOTRIN) 200 mg tablet Take 200 mg by mouth every 6 hours as needed. ? ? ? fluticasone (FLONASE) 50 mcg/actuation nasal spray Use 1-2 Sprays in each nostril once daily. As directed by ENT ? ? ? Cholecalciferol, Vitamin D3, 10,000 unit cap 1 capsule every other week ? ? ? loratadine (CLARITIN) 10 mg tablet Take 1 tablet by mouth once daily as needed. ? ? ? Psyllium Seed-Sucrose (METAMUCIL) Powd Take 1 Tablespoonful by mouth once daily. (Patient taking differently: Take 1 Tablespoonful by mouth as needed. ) ? 0 ? ASPIRIN 81 MG TAB Take one (1) tablet daily . ? 0 ? THERAPEUTIC MULTIVITAMIN TAB Take one(1) tablet daily. ? 0 ? CALTRATE 600 1,500 MG TAB Take one(1) tablet daily. ? 0 ? No current facility-administered medications for this visit.? ? ? ALLERGIES:?Chlorthalidone ? PERSONAL HISTORY:? 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 ?Employer: [employer] ??Social Needs ?Financial resource strain: Not on file ?Food insecurity: ?Worry: Not on file ?Inability: Not on file ?Transportation needs: ?Medical: Not on file ?Non-medical: Not on file ??Tobacco Use ?Smoking status: Former Smoker ?Quit date: 08/01/1973 ?Years since quittin.7 ?Smokeless tobacco: Never Used ??Substance and Sexual Activity ?Alcohol use: Yes ?Alcohol/week: 15.0 standard drinks ?Types: 1 Glasses of Wine (5oz), 5 Cans of Beer (12oz) per week ?Comment: wine at times ?Drug use: No ?Sexual activity: Not Currently ??Lifestyle ?Physical activity: ?Days per week: Not on file ?Minutes per session: Not on file ?Stress: Not on file ??Relationships ?Social connections: ?Talks on phone: Not on file ?Gets together: Not on file ?Attends worship service: Not on file ?Active member of club or organization: Not on file ?Attends meetings of clubs or organizations: Not on file ?Relationship status: Not on file ?Intimate partner violence: ?Fear of current or ex partner: Not on file ?Emotionally abused: Not on file ?Physically abused: Not on file ?Forced sexual activity: Not on file ??Other Topics ?Concerns: ?Not on file ??Social History Narrative ?Not on file ?? ? FAMILY HISTORY:? FAMILY?HISTORY FAMILY HISTORY Problem Relation Age of Onset ? Heart Mother ? from [place] in 70's ? Hypertension Mother ? ? Hypertension Father ? ? Hypertension Sister ? ? Stroke Paternal Grandmother ? ? Coronary Artery Disease Paternal Grandfather ? ? Breast Cancer Sister ? ? other (Plasmacytoma) Sister ? ? Glaucoma Sister ? ? ? REVIEW OF SYMPTOMS: ??The review of systems data was entered by the nurse and reviewed by me ? Nursing Notes: Vanessa Mario RN ?04/12/2019 ?8:49 AM ?Signed REVIEW OF SYSTEMS: ?General:???The patient denies fatigue, denies weight loss, denies weight gain, denies feeling hot, and denies feelings of cold. ?Eyes: ?The patient denies glaucoma, notes eye injury/surgery, wears glasses or contacts. ?Ear/Nose/Throat: ?The patient denies allergies, denies hayfever, denies ear infections, and denies bloody noses. ?Cardiovascular: ?The patient denies chest pain, denies heart disease, notes high blood pressure,denies cardiac stent, denies prior heart attack, denies irregular heart beat, denies high cholesterol, ?denies poor circulation, denies heart failure, other cardiac issues, denies claudication, denies cold feet, denies peripheral arterial stent. ?Respiratory: ?The patient denies tuberculosis, denies pneumonia, denies frequent cough, denies pulmonary embolism, denies shortness of breath, and denies coughing up blood. ?Gastrointestinal: ?The patient denies difficulty swallowing, notes acid reflux, denies ulcers, denies vomiting, denies jaundice/hepatitis, denies gallbladder problems, denies black or tarry stools, denies hemorrhoids, denies bleeding from rectum, denies diverticulitis, denies constipation, denies diarrhea, denies loss of stool control, and denies hernias. ?Kidney/Bladder: ?The patient denies kidney stones, denies urine infections, and denies bloody urine. ?Skin: ?The patient denies a history of skin cancer, denies bleeding/changing moles, and denies a history of skin rash. ?Neurologic: ?The patient denies a history of epilepsy/convulsions, denies headaches, denies head/spinal injuries, and denies stroke/TIA. ?Psychiatric: ?The patient denies psychiatric medications, denies depression, and denies voices, denies substance abuse. ?Endocrine: ?The patient denies thyroid disorders, denies diabetes, and denies hormonal problems. ?Hematologic: ?The patient denies a history of bruising, denies bleeding, and denies anemia, notes blood clots. ?Infections: ?The patient denies a history of measles and mumps, denies rheumatic fever, and denies sexually transmitted diseases. ?Musculoskeletal: ?The patient denies back pain/injury, denies back problems, denies sciatica, denies knee/foot trouble, denies arthritis, or denies gout. ? ? When was patient's last Mammogram screening? 03/12/2019 ? ?Last Colonoscopy: ?05/2009 ? Vanessa Mario RN ? PHYSICAL EXAMINATION: ? General: ?The patient is 69 year old female, well nourished, well hydrated in no acute distress. ?The patient is oriented to time, place, and person. ? VITALS:?Blood pressure 146/96, pulse 79, temperature 36.3 ?C (97.3 ?F), temperature source Temporal Artery, height 176.5 cm (5' 9.5), weight 72.6 kg (160 lb), SpO2 95 %.?Body mass index is 23.29 kg/m?.? ? HEENT: ?Normal cephalic, ataumatic, pupils are equally round, sclera are anicteric, mucous membranes are moist, oropharynx is clear. ?Neck has no masses, asymmetry or lymphadenopathy. ?Thyroid is unremarkable. ? Respiratory: ?Clear to auscultation and percussion. ?Normal respiratory excursion and pattern. ? Cardiac: ?Examination is regular rate and rhythm. ? Abdominal exam: ?Soft, nontender, ?with no palpable masses. ?No hepatosplenomegaly. ?No palpable hernias. ? Rectal exam: ?exam deferred Extremities: ?no clubbing, cyanosis or edema. ?No adenopathy. ? Breast: ?Visual inspection reveals no retractions, nipple inversion, or skin changes. ?Palpation of the right breast reveals no dominant or suspicious masses. ?Palpation of the left breast reveals no dominant or suspicious masses. ?Axillary exam demonstrates no suspicious masses in either the left or right axilla. ?There is no nipple discharge expressed from either the left or right breast. ? LABORATORY VALUES: As Noted ? RADIOLOGIC STUDIES: ?As Noted ? Assessment ? IMPRESSION:?Left breast microcalcifications ? PLAN:??I plan to perform a?stereotactic biopsy of the left breast. ?The planned surgical procedure was discussed extensively with the patient. ?The risks, benefits, anticipated outcomes and possible complications were mentioned. ?My staff has also explained the procedure in understandable terms and the patient was given the option to take printed material concerning the planned procedure. ?The patient had the opportunity to ask questions concerning the planned procedure. ?The patient freely consents to the planned procedure. ? Diagnoses:?(R92.8) Abnormal finding on breast imaging ?(primary encounter diagnosis) ? My findings have been communicated to Dr.??Neela Viera MD?via shared medical record. ?This note will be forwarded to Dr. Neela Viera MD. ? Return to Clinic: The patient is instructed to follow-up with me?after the testing has been completed. ? Satish Flores MD
--- NOTE | 2019-04-18 | IMM_PTH ---
PATIENT: TIFFANIE AGUILAR LOC: [facility] U#:[id number] AGE/SX: 75/F ROOM: RE04/18/[address]: Dr. Satish Flores MD : 1950 BED: DIS: SPEC #: [id number] RECD: 04/19/19 11:42 STATUS: PRATIMA REQ #: [id number] LANDY: 04/18/19 00:[address]: Satish Flores DEPT: IMMUNOHISTOCHEMISTRY RECD BY: [place] ENTERED: 04/19/19 11:43 SP TYPE: IMMUNO OTHR DR: Dr. Neela Viera MD Tissues: Left breast, NOS Procedures: CALPONIN-1 (add) CK5-6 (add) CK8 (add) E-CAD (add) HER2 ADELA (add) KI-67 (add) P53 (add) CT (add) P40 (add) ER (initial) PHYSICIAN & INSTITUTION [place] [id number] SPECIMEN INFORMATION: Tissue Source: Left breast Clinical Info: Left UIQ microcalcifications Specimen Number: [id number] #1 & 2 CPT code: 24101, 39036 x8, 31884 x3 METHODOLOGY: Deparaffinized sections of prefer/formalin-fixed tissue or PAP/DQ stained slides are incubated with monoclonal/polyclonal antibodies/oligonucleotide probes. Localization is made via biotin free immunoperoxidase method. Appropriate controls are performed and reacted as expected. Results on target cell population are indicated in the following table: RESULTS: ANTIBODY / CLONE RESULT Block 1 E-Cad (ECH-6) positive CK8 (15buinL03) positive Calponin-1 (MI603F) positive CK5-6 (D5 & 1684) positive P40 (BC28) positive P53 (DO-7) positive Ki-67 (30-9) positive, moderate MORPHOMETRIC ANALYSIS ER (clone 6F11) negative (0%) CT (clone 16/1E2) negative (0%) Her-2Neu (clone CB11) positive (3+) Block 2 Calponin-1 (XJ939Q) positive P40 (BC28) positive The prognostic test for HER2 is performed on formalin-fixed paraffin embedded tissue. A 3+ (positive) staining pattern is defined as intense, homogeneous, complete, circumferential membranous staining in >10% of contiguous tumor cells. A similar weak (2+) staining pattern is interpreted as equivocal. [place] follow-up testing is recommended for all equivocal cases. Positivity/negativity for ER/CT is reported if > or < 1% of the tumor cells are immuno- reactive, respectively. The ASCO/CAP criteria is used for scoring. Reference: Journal of Clinical Oncology, 2013; 31:0687-2041 & 2010; 16:2123-7905. Duration of fixation: 7.5 Hrs; Sample Adequate: Yes. These assays have not been validated on decalcified tissues. Results should be interpreted with caution given the likelihood of false negativity on decalcified specimens. These tests were developed and their performance characteristics determined by [facility]. They may not have been cleared or approved by the U.S. Food and Drug Administration. The FDA has determined that such clearance or approval is not necessary. INTERPRETATION: Left breast, upper inner quadrant, stereotactic needle core biopsy: Ductal carcinoma in situ. SJ:emperatriz 04/20/19
--- NOTE | 2019-04-18 11:20 | BRBX_PTH ---
PATIENT: TIFFANIE AGUILAR LOC: [facility] U#:[id number] AGE/SX: 75/F ROOM: RE04/18/[address]: Dr. Satish Flores MD : 1950 BED: DIS: SPEC #: [id number] RECD: 04/18/19 12:23 STATUS: PRATIMA RENelson #: [id number] LANDY: 04/18/19 11:[address]: Satish Flores DEPT: SURGICAL PATHOLOGY RECD BY: Lazaro Staton ENTERED: 04/18/19 14:15 SP TYPE: BREAST BX OTHR DR: Dr. 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 Nuclear grade - high (3). Necrosis - present, central (expansive comedo necrosis). Calcification - present. See comment. ZULEYKA:emperatriz 04/19/19 COMMENT Immunohistochemistry ([id number]) supports the above diagnosis. ER/CO/Oqu1xvl studies are being performed on sections of tumor and the results from this study will be reported separately ([id number]). Case has been reviewed in consultation with Dr. Chu who concurs with the above diagnosis. IDC:AM MICROSCOPIC DESCRIPTION Slides are reviewed. GROSS DESCRIPTION Received is one container labeled with the patient's name and not further designated. The specimen consists of multiple irregular fragments of macias-yellow soft tissue that in aggregate measure 5 x 5 x 0.2 cm. The specimen is totally submitted in two cassettes. / AM:emperatriz 04/18/19 TC:0 CPT: 38170
--- NOTE | 2019-04-18 11:29 | PCM.OPRPT ---
Report of Operation Date of Procedure: 04/18/19 Pre-Operative Diagnosis: left breast microcalcifications Post-Operative Diagnosis: left breast microcalcifications - successful biopsy Surgery/Procedure Performed:: left vaccuum assisted stereotactic breast biopsy with specimen radiogram and gel marker placement microfilming document preparer: None Type of Anesthesia:: Local Specimen's removed: left breast Estimated Blood Loss (mL): minimal Description of Procedure: The patient was brought to the stereotactic suite and informed of the plan course of events. The left breast was positioned in the CC approach on the Vora stereotactic table. Mammographic image demonstrated the area of abnormality to be located in the center of the radiograph. Stereotactic images were then obtained which demonstrated good positioning of the abnormality for biopsy with good stroke yasmin parameters. The breast was cleaned with Betadine area did one percent lidocaine was used to anesthetize the skin and a small stab incision made. An 8-gauge mammotome needle was placed into the pre-fire position. Stereotactic images demonstrated good positioning around the planned biopsy site. Local anesthetic injected deeply in the breast. The needle was deployed. Post deployment images demonstrated good positioning of the planned biopsy site. Multiple vacuum-assisted samples were obtained and jcsosl-num-sbajz fashion. Specimen radiograph demonstrated micro-calcifications in the sample. A gel marker clip was deployed. Post biopsy images demonstrated good position of the clip relative the biopsy cavity. The breast was removed from compression. Steri-Strips and a dressing applied. Post procedure mammogram images were obtained.
== END ==
PROVIDERS: Family Provider Internal Medicine; PCP Internal Medicine; Referring Provider Surgery; Visit Provider Surgery
DX: D05.12 Intraductal carcinoma in situ of left breast (principal); R92.0 Mammographic microcalcification found on diagnostic imaging of breast; R92.8 Other abnormal and inconclusive findings on diagnostic imaging of breast; R92.1 Mammographic calcification found on diagnostic imaging of breast; N64.1 Fat necrosis of breast; E78.00 Pure hypercholesterolemia, unspecified; I10 Essential (primary) hypertension; Z87.891 Personal history of nicotine dependence; H40.9 Unspecified glaucoma
CPT/HCPCS: 19081; 88305; 88341; 88342; J7050

== ENCOUNTER 2019-05-16 07:26 | Day surgery (SDC) | payer MEDICARE, OTHER, SELFPAY ==
--- NOTE | 2019-05-15 17:27 | PCM.HP.BLA ---
History and Physical Date of Admission: 05/16/19 HISTORY AND PHYSICAL -?LEFT BREAST DCIS ? Bonnie Palma 1950 May 07, 2019 ? ? REFERRING PHYSICIAN: ??Neela Viera MD ? CHIEF COMPLAINT: ?BREAST ?- LEFT??- DCIS ? HPI:?The patient is a 69 year old female with a complaint of an abnormal mammogram. ?The patient had a mammogram on March 27, 2019 which demonstrated: ? IMPRESSION: SUSPICIOUS OF MALIGNANCY The multiple calcifications in the left breast are at an intermediate suspicion for malignancy. ?A stereotactic biopsy is recommended. ? There are multiple calcifications in the left breast superior medial quadrant posterior depth. No other significant masses or calcifications are seen in the breast. ? The patient denies a history of breast masses. ?She does not ?perform a self breast exam routinely. ?She notes no skin changes. ?She denies nipple discharge. ?She notes no axillary masses. ?She notes no family history of breast problems. ?She notes no significant breast trauma or breast difficulties in the past. ? I performed a left side stereotactic biopsy for her abnormal mammogram on April 18, 2019. ?The pathology returned as DCIS. ? 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 cribriform and comedo pattern. Nuclear grade ? high (3). Necrosis ? present, central (expansive ?comedo? necrosis). Calcification ? present ? ? The patient notes moderate bruising since the procedure. ? VITALS: There were no vitals taken for this visit. ? On examination, the Left breast biopsy site is clean, dry, and intact. ?There is moderate bruising of the site. Assessment IMPRESSION: status post stereotactic biopsy for Left breast DCIS. ? PLAN: ?If Bonnie notes any problems, she ?should contact me immediately. ?We extensively discussed her diagnosis of ductal carcinoma. ?She was able to ask questions and those questions were answered. ?She was given a handout extensively detailing the options for DCIS treatment. ??Discussion with the patient concerning her diagnosis lasted 30 minutes. ?I plan to proceed with surgical excision. ?I plan to perform needle localization lumpectomy. ? ? The planned surgical procedure was discussed extensively with the patient. ?The risks, benefits, anticipated outcomes and possible complications were mentioned. ?My staff has also explained the procedure in understandable terms and the patient was given the option to take printed material concerning the planned procedure. ?The patient had the opportunity to ask questions concerning the planned procedure. ?The patient freely consents to the planned procedure. ? We will tentatively plan for surgical intervention for May 16. ?She will return in 2 weeks to assure that her bruising has resolved. She returns now notes that her bruising has completely resolved. ? We extensively discussed her diagnosis and at the last visit discussed her surgical options including breast conservation surgical procedures, mastectomy without reconstruction and mastectomy with reconstruction. ?The patient has elected to undergo a left side?needle localization biopsy/lumpectomy. ? ? ? PAST?MEDICAL?HISTORY PAST MEDICAL HISTORY Diagnosis Date ? Allergic rhinitis, cause unspecified ? ? Allergic rhinitis ? BCC (basal cell carcinoma), face January 2015 ? Trillium [place]--just above right lip corner ? DDD (degenerative disc disease), lumbar ? ? Disorder of bone and cartilage, unspecified ? ? Diverticulosis of colon (without mention of hemorrhage) ? ? Mitral valve disorders(424.0) ? ? Nausea and vomiting 07/20/09-07/22/09 ? missed flight ? PMH - PAST MEDICAL HISTORY OF ? ? dvt ? PMH - PAST MEDICAL HISTORY OF ? ? tendonitis left foot ? Pure hypercholesterolemia ? ? Unspecified essential hypertension ? ? Uses hearing aid 2014 ? bilateral ? ? PAST?SURGICAL?HISTORY PAST SURGICAL HISTORY Procedure Laterality Date ? APPENDECTOMY ? 1996 ? BREAST BIOPSY Right ? ? right breast, benign ? COLONOSCOP W/ OR W/O [facility] SPEC ? 05/12/09 ? Colonoscopy ? KNEE SCOPE,DIAGNOSTIC Right 1999 ? Arthroscopy, knee right ? PAST SURGICAL HISTORY OF ? mid 90's ? cardiac cath OK ? REMOVAL OF OVARY/TUBE(S) ? 1996 ? Salpingo-oophorectomy bilateral ? [facility] GUIDE FOR BREAST BX ? 04/18/2019 ? left vvaccuum assisted stereotactic breast biopst w/specimen radiogram and gel marker placement ? TOTAL ABDOM HYSTERECTOMY ? 1996 ? Hysterectomy, SUKHWINDER for benign condition ? TOTAL KNEE REPLACEMENT Right 11/16/2018 ? ? CURRENT?MEDICATIONS Current Outpatient Medications Medication Sig Dispense Refill ? quinapril (ACCUPRIL) 5 mg tablet Take 1 tablet by mouth once daily. (Takes with 10 mg dose of quinapril) 90 tablet 3 ? atenolol (TENORMIN) 25 mg tablet Take 1 tablet by mouth once daily. 90 tablet 3 ? omeprazole (PRILOSEC) 20 mg capsule Take 1 capsule by mouth once daily. 90 capsule 3 ? quinapril (ACCUPRIL) 10 mg tablet Take 1 tablet by mouth once daily. 90 tablet 3 ? ibuprofen (MOTRIN) 200 mg tablet Take 200 mg by mouth every 6 hours as needed. ? ? ? fluticasone (FLONASE) 50 mcg/actuation nasal spray Use 1-2 Sprays in each nostril once daily. As directed by ENT ? ? ? Cholecalciferol, Vitamin D3, 10,000 unit cap 1 capsule every other week ? ? ? loratadine (CLARITIN) 10 mg tablet Take 1 tablet by mouth once daily as needed. ? ? ? Psyllium Seed-Sucrose (METAMUCIL) Powd Take 1 Tablespoonful by mouth once daily. (Patient taking differently: Take 1 Tablespoonful by mouth as needed. ) ? 0 ? ASPIRIN 81 MG TAB Take one (1) tablet daily . ? 0 ? THERAPEUTIC MULTIVITAMIN TAB Take one(1) tablet daily. ? 0 ? CALTRATE 600 1,500 MG TAB Take one(1) tablet daily. ? 0 ? No current facility-administered medications for this visit.? ? ALLERGIES:?Chlorthalidone ? PERSONAL HISTORY:? 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 ?Employer: [employer] ??Social Needs ?Financial resource strain: Not on file ?Food insecurity: ?Worry: Not on file ?Inability: Not on file ?Transportation needs: ?Medical: Not on file ?Non-medical: Not on file ??Tobacco Use ?Smoking status: Former Smoker ?Quit date: 08/01/1973 ?Years since quittin.7 ?Smokeless tobacco: Never Used ??Substance and Sexual Activity ?Alcohol use: Yes ?Alcohol/week: 15.0 standard drinks ?Types: 1 Glasses of Wine (5oz), 5 Cans of Beer (12oz) per week ?Comment: wine at times ?Drug use: No ?Sexual activity: Not Currently ??Lifestyle ?Physical activity: ?Days per week: Not on file ?Minutes per session: Not on file ?Stress: Not on file ??Relationships ?Social connections: ?Talks on phone: Not on file ?Gets together: Not on file ?Attends religion service: Not on file ?Active member of club or organization: Not on file ?Attends meetings of clubs or organizations: Not on file ?Relationship status: Not on file ?Intimate partner violence: ?Fear of current or ex partner: Not on file ?Emotionally abused: Not on file ?Physically abused: Not on file ?Forced sexual activity: Not on file ??Other Topics ?Concerns: ?Not on file ??Social History Narrative ?Not on file ? FAMILY HISTORY:? FAMILY?HISTORY FAMILY HISTORY Problem Relation Age of Onset ? Heart Mother ? from [place] in 70's ? Hypertension Mother ? ? Hypertension Father ? ? Hypertension Sister ? ? Stroke Paternal Grandmother ? ? Coronary Artery Disease Paternal Grandfather ? ? Breast Cancer Sister ? ? other (Plasmacytoma) Sister ? ? Glaucoma Sister ? ? REVIEW OF SYMPTOMS: ??The review of systems data was entered by the nurse and reviewed by me ? Nursing Notes: Vanessa Mario RN ?05/04/2019 ?1:16 PM ?Signed REVIEW OF SYSTEMS: ?General:???The patient denies fatigue, denies weight loss, denies weight gain, denies feeling hot, and denies feelings of cold. ?Eyes: ?The patient denies glaucoma, notes eye injury/surgery, wears glasses or contacts. ?Ear/Nose/Throat: ?The patient denies allergies, denies hayfever, denies ear infections, and denies bloody noses. ?Cardiovascular: ?The patient denies chest pain, denies heart disease, notes high blood pressure,denies cardiac stent, denies prior heart attack, denies irregular heart beat, denies high cholesterol, ?denies poor circulation, denies heart failure, other cardiac issues, denies claudication, denies cold feet, denies peripheral arterial stent. ?Respiratory: ?The patient denies tuberculosis, denies pneumonia, denies frequent cough, denies pulmonary embolism, denies shortness of breath, and denies coughing up blood. ?Gastrointestinal: ?The patient denies difficulty swallowing, notes acid reflux, denies ulcers, denies vomiting, denies jaundice/hepatitis, denies gallbladder problems, denies black or tarry stools, denies hemorrhoids, denies bleeding from rectum, denies diverticulitis, denies constipation, denies diarrhea, denies loss of stool control, and denies hernias. ?Kidney/Bladder: ?The patient denies kidney stones, denies urine infections, and denies bloody urine. ?Skin: ?The patient denies a history of skin cancer, denies bleeding/changing moles, and denies a history of skin rash. ?Neurologic: ?The patient denies a history of epilepsy/convulsions, denies headaches, denies head/spinal injuries, and denies stroke/TIA. ?Psychiatric: ?The patient denies psychiatric medications, denies depression, and denies voices, denies substance abuse. ?Endocrine: ?The patient denies thyroid disorders, denies diabetes, and denies hormonal problems. ?Hematologic: ?The patient denies a history of bruising, denies bleeding, and denies anemia, notes blood clots. ?Infections: ?The patient denies a history of measles and mumps, denies rheumatic fever, and denies sexually transmitted diseases. ?Musculoskeletal: ?The patient denies back pain/injury, denies back problems, denies sciatica, denies knee/foot trouble, denies arthritis, or denies gout. ? ? When was patient's last Mammogram screening? 03/12/2019 ? ?Last Colonoscopy: ?05/2009? ? ? PHYSICAL EXAMINATION: ? General: ?The patient is 69 year old female, well nourished, well hydrated in no acute distress. ?The patient is oriented to time, place, and person. ? VITALS:?Blood pressure 146/70, pulse 72, temperature 36.3 ?C (97.4 ?F), temperature source Temporal Artery, height 176.5 cm (5' 9.5), weight 73.2 kg (161 lb 6.4 oz), SpO2 97 %.?Body mass index is 23.49 kg/m?.? ? HEENT: ?Normal cephalic, ataumatic, pupils are equally round, sclera are anicteric, mucous membranes are moist, oropharynx is clear. ?Neck has no masses, asymmetry or lymphadenopathy. ?Thyroid is unremarkable. ? Respiratory: ?Clear to auscultation and percussion. ?Normal respiratory excursion and pattern. ? Cardiac: ?Examination is regular rate and rhythm. ? Abdominal exam: ?Soft, nontender, ?with no palpable masses. ?No hepatosplenomegaly. ?No palpable hernias. ? Rectal exam: ?exam deferred Extremities: ?no clubbing, cyanosis or edema. ?No adenopathy. ? Breast: ?Visual inspection reveals no retractions, nipple inversion, or skin changes. ?Palpation of the right breast reveals no dominant or suspicious masses. ?Palpation of the left breast reveals no dominant or suspicious masses. ?Axillary exam demonstrates no suspicious masses in either the left or right axilla. ?There is no nipple discharge expressed from either the left or right breast. ? LABORATORY VALUES: As Noted ? RADIOLOGIC STUDIES: ?As Noted ? Assessment ? IMPRESSION: BREAST CANCER -?LEFT??- DCIS ? PLAN: ??I plan to perform a left side?needle localization biopsy/lumpectomy. ?The planned surgical procedure was discussed extensively with the patient. ?The risks, benefits, anticipated outcomes and possible complications and alternatives were discussed. ?My staff has also explained the procedure in understandable terms and the patient was given the option to take printed material concerning the planned procedure. ?The patient had the opportunity to ask questions concerning the planned procedure. ?The patient freely consents to the planned procedure. ?? ? Anticipated Surgical Procedure/ CPT Code:?left?preoperative stereotactic guided needle placement - 97454??LUMPECTOMY - 59641-398, ?01020--468-19 ? Anticipated Anesthetic:?General ? Patient weight:??Blood pressure 146/70, pulse 72, temperature 36.3 ?C (97.4 ?F), temperature source Temporal Artery, height 176.5 cm (5' 9.5), weight 73.2 kg (161 lb 6.4 oz), SpO2 97 %.?BMI: ?Body mass index is 23.49 kg/m?. ? Planned antibiotic:?Ancef 2gm IVPB nurse practitioner manager to OR ? SCDs needed -?Yes ? Patient Service Specialist Needed -?Yes ?? ? Diagnoses:?(D05.12) Breast neoplasm, Tis (DCIS), left ?(primary encounter diagnosis) ? Return to Clinic: The patient is instructed to follow-up with me?1 week post operatively. ? Satish Flores MD
--- NOTE | 2019-05-16 | IMM_PTH ---
PATIENT: TIFFANIE AGUILAR [place] [facility] [place][id number] AGE/SX: 69/F ROOM: RE05/16/[address]: Dr. Satish Flores MD : 1950 BED: DIS: 05/16/2019 SPEC #: [id number] RECD: 05/18/19 13:25 STATUS: PRATIMA REQ #: [id number] LANDY: 05/16/19 00:[address]: Satish Flores DEPT: IMMUNOHISTOCHEMISTRY RECD BY: Alia Beach ENTERED: 05/18/19 13:27 SP TYPE: IMMUNO OTHR DR: Dr. Neela Viera MD Tissues: Left breast, NOS Procedures: CALPONIN-1 (add) CK5-6 (add) CK8 (add) E-CAD (add) HER2 ADELA (add) KI-67 (add) P53 (add) KY (add) P40 (add) ER (initial) PHYSICIAN & [address] [address] SPECIMEN INFORMATION: Tissue Source: Left breast lumpectomy Clinical Info: Left breast DCIS Specimen Number: [id number] #6 CPT code: 03983, 14180 x6, 43061 x3 METHODOLOGY: Deparaffinized sections of prefer/formalin-fixed tissue or PAP/DQ stained slides are incubated with monoclonal/polyclonal antibodies/oligonucleotide probes. Localization is made via biotin free immunoperoxidase method. Appropriate controls are performed and reacted as expected. Results on target cell population are indicated in the following table: RESULTS: ANTIBODY / CLONE RESULT Block 6 E-Cad (ECH-6) positive CK8 (52lmkoI27) positive Calponin-1 (NH125Q) negative * CK5-6 (D5 & 1684) negative * P40 (BC28) negative * P53 (DO-7) positive, moderate Ki-67 (30-9) positive, low to moderate *?positive in the area of ductal carcinoma in situ. MORPHOMETRIC ANALYSIS ER (clone [id number]) 0 KY (clone 16/1E2) 0 Her-2Neu (clone CB11) 3+ The prognostic test for HER2 is performed on formalin-fixed paraffin embedded tissue. A 3+ (positive) staining pattern is defined as intense, homogeneous, complete, circumferential membranous staining in >10% of contiguous tumor cells. A similar weak (2+) staining pattern is interpreted as equivocal. MONICO follow-up testing is recommended for all equivocal cases. Positivity/negativity for ER/KY is reported if > or < 1% of the tumor cells are immuno- reactive, respectively. The ASCO/CAP criteria is used for scoring. Reference: Journal of Clinical Oncology, 2013; 31:6110-4582 & 2010; 16:4731-9181. Duration of fixation: 10.5 Hrs; Sample Adequate: Yes. These assays have not been validated on decalcified tissues. Results should be interpreted with caution given the likelihood of false negativity on decalcified specimens. These tests were developed and their performance characteristics determined by [facility]. They may not have been cleared or approved by the U.S. Food and Drug Administration. The FDA has determined that such clearance or approval is not necessary. The above immunohistochemical/dualISH markers are ordered and reviewed by the Pathologist. INTERPRETATION: Left breast, lumpectomy with needle localization: Invasive ductal carcinoma, nuclear grade 3. Ductal carcinoma in situ. Negative for estrogen receptors (unfavorable prognostic indicator). Negative for progesterone receptors (unfavorable prognostic indicator). Positive for overexpression of UDM6xgy. SJ:emperatriz 05/21/19
--- NOTE | 2019-05-16 | BRBX_PTH ---
PATIENT: TIFFANIE AGUILAR LOC: [facility] U#:[id number] AGE/SX: 69/F ROOM: RE05/16/[address]: Dr. Satish Flores MD : 1950 BED: DIS: 05/16/2019 SPEC #: [id number] RECD: 05/16/19 10:49 STATUS: PRATIMA RENelson #: [id number] LANDY: 05/16/19 00:[address]: Satish Flores DEPT: SURGICAL PATHOLOGY RECD BY: Alia Beach ENTERED: 05/16/19 13:04 SP TYPE: BREAST BX OTHR DR: Dr. Neela Viera MD Tissues: Left breast, NOS Procedures: Surgery Specimen Level V HEADER OPERATION: Left breast lumpectomy, stereotactic needle localization PRE-OP DIAGNOSIS: Left breast cancer DCIS TISSUE SUBMITTED: Left breast lumpectomy, superficial single tail and medial double tail MICROSCOPIC DIAGNOSIS Left breast, lumpectomy with needle localization: Invasive ductal carcinoma. Ductal carcinoma in situ. See cancer summary below. SJ:emperatriz 05/18/19 INVASIVE BREAST CANCER SUMMARY: Specimen - partial breast Procedure - excision with wire-guided localization Lymph node sampling - no lymph node present Specimen integrity - single intact specimen Specimen size - 5.5 x 4.5 x 1.5 cm Specimen laterality - left Tumor site - upper inner quadrant as per clinical information Tumor size - 0.5 x 0.3 cm (measured microscopically) Tumor focality - single focus of invasive carcinoma Macroscopic and Microscopic extent of tumor: Skin - invasive carcinoma does not invade into the dermis or epidermis. Nipple - not applicable Skeletal muscle - no skeletal muscle present. Ductal carcinoma in situ (DCIS) - DCIS is present Extensive intraductal component (EIC) - positive Estimated size (extent) of DCIS - largest focus of DCIS measures 2 x 0.7 cm Number of blocks with DCIS - 7 Number of blocks examined - 12 Architectural patterns - comedo and cribriform Nuclear grade - grade 1-3 (low, intermediate and high) Necrosis - present, central (expansive comedo necrosis) Lobular carcinoma in situ (LCIS) - not identified Histologic type of invasive carcinoma - invasive ductal carcinoma (no special type). Histologic Grade (Maryan grade): Glandular/tubular differentiation - score 3 Nuclear pleomorphism - score 3 Mitotic count - score 2 Overall grade - 3 (score of 8) Margins: Margins uninvolved by invasive carcinoma. The tumor is 1.8 cm away from the closest posterior margin. Margins uninvolved by DCIS. The tumor is 0.3 cm away from the closest superior margin and is 0.4 cm away from the next closest inferior margin and 0.5 cm away from the posterior margin. Treatment effect: Response to presurgical (neoadjuvant) therapy - no known presurgical therapy. Lymph-Vascular invasion - not identified Dermal lymph-vascular invasion - not identified Lymph nodes - there are no lymph nodes present. Distant metastasis - not applicable Additional pathologic findings - extensive adenosis - Intraductal hyperplasia with focal atypia. - Changes consistent with previous biopsy site. Ancillary studies - ([id number]) ER - negative (0%) GA - negative (0%) Her2 janeth - positive (3+) Her2 by dual MONICO - not performed Microcalcifications - present in invasive carcinoma, ductal carcinoma in situ and non-neoplastic tissue. Clinical history - Please make reference to previous specimen ([id number]), left breast, upper inner quadrant microcalcification, stereotactic needle core biopsy with diagnosis of ductal carcinoma in situ. PATHOLOGIC STAGE: pT1a pNx Mx The above summary is in compliance with [employer] [place] [employer] (CAP) Cancer Protocols Checklist and [place] Joint Committee on Cancer (AJCC), Staging Manual, 8th Ed. COMMENT In multiple areas, the ductal carcinoma in situ is admixed with atypical ductal hyperplasia. Case has been reviewed in consultation with Dr. Chu who concurs with the above diagnosis. IDC:AM MICROSCOPIC DESCRIPTION Slides are reviewed. GROSS DESCRIPTION Received fresh for OR consultation labeled with the patient's name is a specimen designated left breast. The specimen consists of a lumpectomy measuring 5.5 x 4.5 x 1.5 cm and weighing 20.5 gm. Serial sections reveal a firm, macias-white lesion with cystic change measuring 1 x 0.9 x 0.5 cm and located 0.5 cm from the closest (inferior-posterior) margin of excision. An ellipse of unremarkable skin is present in the anterior surface measuring 1.7 x 0.8 cm. The specimen has been differentially inked as follows: anterior - yellow, posterior - black, superior - blue, inferior - green, medial - red and lateral - orange. The gross is reviewed with the surgeon in person. The specimen is serially sectioned and totally submitted in 12 cassettes. / AM:emperatriz 05/17/19 TC:0 CPT: 11036, 30999
--- NOTE | 2019-05-16 08:03 | BI_ITS ---
SURGICAL BREAST SPECIMEN RADIOGRAPH CLINICAL: Document presence of calcifications in biopsy specimen. FINDINGS: Specimen shows presence of calcifications. Electronically Signed: Keegan Campos, at 11:01 EDT , Service support , BI/Breast Biopsy Specimen
[2019-05-16 08:28] VITALS: BP 154/81; PULSE 56; RESP 16; TEMP 36.4; O2SAT 100; BMI 22.8
[2019-05-16] MEDS: Lactated Ringers 1,000 ML 100 ML IV (09:33)
[2019-05-16] MEDS: Cefazolin 2 GM in 0.9% Normal Saline 100 ML IV (10:02)
[2019-05-16] MEDS: Bupivacaine Mpf 0.5% 30 ML VIAL (10:56)
--- NOTE | 2019-05-16 10:58 | OP.PCM_ITS ---
Report of Operation Date of Procedure: 05/16/19 Pre-Operative Diagnosis: left breast DCIS Post-Operative Diagnosis: left breast DCIS - successful radiographic and gross margins Surgery/Procedure Performed:: left stereotactic wire localization lumpectomy cash reconciliation specialist: Júnior Aguila Type of Anesthesia:: General Anesthesiologist: Fabio Matthews - ASA2 Specimen's removed: left breast tissue Drains: none Estimated Blood Loss (mL): 10 Fluids Replaced: 600 Description of Procedure: The patient was brought to the stereotactic suite. Her left breast was positioned in the CC approach in the Moore stereotactic table. Mammogram image demonstrated the clip to be nicely centered. Stereotactic images were obtained. Planned placement of the wire was marked and an additional 15 mm of depth added to the prescribed depth. The breast was then cleaned with Betadine. Local anesthetic was injected in the breast and a 15 Kopan's wire was inserted to the prescribed depth. Stereotactic images demonstrated good positioning of the wire. The wire was deployed as an needle was withdrawn. Stereotactic images demonstrated good positioning of the wire. The breast was marked compression the wire cut to length and taped. CC and MLO views were then obtained. The patient was then brought to the operative suite. Sign was performed verifying patient, site, position, SCIP antibiotic prophylaxis-2 g of Ancef and DVT prophylaxis with SCDs. . Following this, the patient?s right breast, the patient?s left breast was then prepped and draped in the usual fashion. Timeout was performed verifying patient, site, position. The wire entered the breast at the CC position. An elliptical incision was made and dissection carried down to subcutaneous breast tissue and then flared out such that a good margin would be obtained in all axes. When the specimen was removed. The wire came from the cranial site. A solitary suture was placed at the superficial caudal site just where the dissection was changed from superficial below the breast tissue to angling deep. A double tail suture was placed along the medial aspect of the specimen. The specimen was oriented on a radiographic plate and sent for specimen radiograph. While we?re awaiting specimen radiograph, the cavity was irrigated with sterile water and aspirated. There was noted to be good hemostasis. 4 medium clips were placed at the deep cavity margins and 4 small clips at the superficial cavity margins oriented the cavity for future radiation treatment. Subcutaneous breast tissue closed with interrupted 3-0 Vicryl suture. Skin was closed with a running 4-0 Biosyn subcuticular suture. Specimen radiograph demonstrated good position of the clip relative to the biopsy site. The specimen was then brought to the pathology department. I oriented the specimen with the pathologist. Gross margins were examined and felt to be at least 1 cm. Given this, Dermabond was applied to the skin the patient was awakened and brought to recovery in stable condition. - Admit VTE Documentation VTE Present on Admission: No VTE Mechan Device Prophylaxis: SCD's VTE Pharm Prophylaxis ordered?: No
[2019-05-16 11:07] VITALS: BP 140/77; BP 154/81; PULSE 95; RESP 16; TEMP 36.1; O2SAT 98
[2019-05-16 11:15] VITALS: BP 131/70; BP 154/81; PULSE 86; RESP 16; O2SAT 98
--- NOTE | 2019-05-16 11:16 | DCINST_ITS ---
Discharge Diet: No Restrictions Discharge Activity: Return to Normal Activity May shower in (days): 3 Remove Dressing in (days):: 3 - Leave Dermabond in place. Allergies/Adverse Reactions: Allergies chlorthalidone Adverse Reaction (Verified 05/16/19 08:23) Other Medications to take at Discharge Atenolol [Tenormin (beta court)] 25 mg PO DAILY 09/20/13 Calcium (Elemental) [Caltrate-600] 600 mg PO DAILY@0800 09/20/13 Ergocalciferol [Vitamin D] 50,000 unit PO Q14D 09/20/13 Omeprazole [Prilosec] 20 mg PO DAILY 09/20/13 Quinapril HCl [Accupril] 15 mg PO DAILY 09/20/13 Aspirin [Aspir-Low] 81 mg PO DAILY 10/24/17 Fluticasone 0.05% [Flonase Nasal [place]] 1 spray NASAL DAILY PRN 10/24/17 Loratadine [Claritin] 10 mg PO DAILY PRN 10/24/17 Multivitamin [Multiple Vitamins] 1 each PO DAILY 10/24/17 Oxycodone HCl/Acetaminophen [Percocet 5/325] 1 tab PO Q4H PRN PRN 4 Days #12 tab 05/16/19 The following prescriptions were given: Oxycodone HCl/Acetaminophen [Percocet 5/325] 1 tab PO Q4H PRN PRN 4 Days #12 tab PRN Reason: Pain Prescription Printed Primary Care Physician: Neela Viera MD [Primary Care Provider] - Test Results: Test results from this visit will be discussed in further detail at your follow- up appointment, if applicable. Please Follow Up With: Satish Flores MD - [phone] When: Please call for an appointment to be seen in one week.
[2019-05-16 11:30] VITALS: BP 138/80; BP 154/81; PULSE 88; RESP 16; TEMP 36.2; O2SAT 98
[2019-05-16 12:25] VITALS: BP 154/66; BP 154/81; PULSE 62; RESP 16; TEMP 35.9; O2SAT 100
== END 2019-05-16 13:35 | disposition home or self-care (01) ==
LOC: SDC 07:26 → AC 07:27
PROVIDERS: Family Provider Internal Medicine; PCP Internal Medicine; Referring Provider Surgery; Visit Provider Surgery
PROC: (CPT 19301; principal; 2019-05-16 09:00)
DX: D05.12 Intraductal carcinoma in situ of left breast (principal); E78.00 Pure hypercholesterolemia, unspecified; I10 Essential (primary) hypertension; M51.36 Other intervertebral disc degeneration, lumbar region; K57.30 Diverticulosis of large intestine without perforation or abscess without bleeding; M89.9 Disorder of bone, unspecified; Z87.891 Personal history of nicotine dependence; K21.9 Gastro-esophageal reflux disease without esophagitis; Z86.718 Personal history of other venous thrombosis and embolism
CPT/HCPCS: 19301; 19281; 76098; 88305; 88307; 88341; 88342; J7120; J2405

== ENCOUNTER 2019-06-25 08:10 | Day surgery (SDC) | payer MEDICARE, OTHER, SELFPAY ==
--- NOTE | 2019-06-23 06:58 | HP.PCM_ITS ---
History and Physical Date of Admission: 06/25/19 HISTORY AND PHYSICAL - BREAST CANCER ? Bonnie Palma 1950 June 15, 2019 ? ? REFERRING PHYSICIAN: ??Satish Flores MD ? CHIEF COMPLAINT: ?BREAST CANCER - LEFT??- DCIS?UPSTAGED TO INVASIVE CARCINOMA ? HPI:?The patient is a 69 year old female with a complaint of an abnormal mammogram. ?The patient had a mammogram on March 27, 2019 which demonstrated: ? IMPRESSION: SUSPICIOUS OF MALIGNANCY The multiple calcifications in the left breast are at an intermediate suspicion for malignancy. ?A stereotactic biopsy is recommended. ? There are multiple calcifications in the left breast superior medial quadrant posterior depth. No other significant masses or calcifications are seen in the breast. ? The patient denies a history of breast masses. ?She does not ?perform a self breast exam routinely. ?She notes no skin changes. ?She denies nipple discharge. ?She notes no axillary masses. ?She notes no family history of breast problems. ?She notes no significant breast trauma or breast difficulties in the past. ? I performed a left side stereotactic biopsy for her abnormal mammogram on April 18, 2019. ?The pathology returned as DCIS. ? 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 cribriform and comedo pattern. Nuclear grade ? high (3). Necrosis ? present, central (expansive ?comedo? necrosis). Calcification ? present ? I performed a left needle localization lumpectomy/partial mastectomy on May 16, 2019. ?The pathology demonstrated: ? MICROSCOPIC DIAGNOSIS Left breast, lumpectomy with needle localization: ?Invasive ductal carcinoma. ?Ductal carcinoma in situ. ?See cancer summary below. ? SJ:rg ?05/18/19 ? INVASIVE BREAST CANCER SUMMARY: ??Specimen ? partial breast ??Procedure ? excision with wire-guided localization ??Lymph node sampling ? no lymph node present ??Specimen integrity ? single intact specimen ??Specimen size ? 5.5 x 4.5 x 1.5 cm ??Specimen laterality - left ??Tumor site ? upper inner quadrant as per clinical information ??Tumor size ? 0.5 x 0.3 cm (measured microscopically) ??Tumor focality ? single focus of invasive carcinoma ??Macroscopic and Microscopic extent of tumor: ?Skin ? invasive carcinoma does not invade into the dermis or epidermis. ?Nipple ? not applicable ?Skeletal muscle ? no skeletal muscle present. ??Ductal carcinoma in situ (DCIS) ? DCIS is present ???Extensive intraductal component (EIC) - positive ?Estimated size (extent) of DCIS ? largest focus of DCIS measures 2 x 0.7 cm ?Number of blocks with DCIS - 7 ?Number of blocks examined - 12 ??Architectural patterns ? comedo and cribriform ?Nuclear grade ? grade 1-3 (low, intermediate and high) ?Necrosis ? present, central (expansive comedo necrosis) ??Lobular carcinoma in situ (LCIS) ? not identified ??Histologic type of invasive carcinoma ? invasive ductal carcinoma (no special type). ??Histologic Grade ([place] grade): ?Glandular/tubular differentiation - score 3 ?Nuclear pleomorphism - score 3 ?Mitotic count ? score 2 ?Overall grade - 3 (score of 8) ??Margins: ?Margins uninvolved by invasive carcinoma. ?The tumor is 1.8 cm away from the closest posterior margin. ?Margins uninvolved by DCIS. ?The tumor is 0.3 cm away from the closest superior margin and is 0.4 cm away from the next closest inferior margin and 0.5 cm away from the posterior margin. ??Treatment effect: ?Response to presurgical (neoadjuvant) therapy - no known presurgical therapy. ??Lymph-Vascular invasion ? not identified ??Dermal lymph-vascular invasion ? not identified ??Lymph nodes ? there are no lymph nodes present. ??Distant metastasis ? not applicable ??Additional pathologic findings ? extensive adenosis ?- Intraductal hyperplasia with focal atypia. ?- Changes consistent with previous biopsy site. ??Ancillary studies ? ([id number]) ?ER ? negative (0%) ?OK ? negative (0%) ?Her2 janeth ? positive (3+) ?Her2 by dual MONICO - not performed ??Microcalcifications ? present in invasive carcinoma, ductal carcinoma in situ and non-neoplastic tissue. ??Clinical history - Please make reference to previous specimen ([id number]), left breast, upper inner quadrant microcalcification, stereotactic needle core biopsy with diagnosis of ductal carcinoma in situ. ? ??PATHOLOGIC STAGE: ?pT1a ?pNx ?Mx ? The above summary is in compliance with [employer] [place] [employer] (CAP) Cancer Protocols Checklist and [place] Joint Committee on Cancer (AJCC), Staging Manual, 8th Ed. ? COMMENT In multiple areas, the ductal carcinoma in situ is admixed with atypical ductal hyperplasia. ? Case has been reviewed in consultation with Dr. Chu who concurs with the above diagnosis. IDC:AM ? ? Bonnie notes no significant issues since surgery. ?Post operative pain has been well controlled. ?The patient denies nausea. ?The patient`s appetite has been good. ? ? We extensively discussed her diagnosis and at the last visit discussed her surgical options including breast conservation surgical procedures, mastectomy without reconstruction and mastectomy with reconstruction. ?The patient has elected to undergo a left side?sentinel lymph node biopsy with possible axillary dissection. ? ? ? PAST MEDICAL HISTORY PAST MEDICAL HISTORY Diagnosis Date ? Allergic rhinitis, cause unspecified ? ? Allergic rhinitis ? BCC (basal cell carcinoma), face January 2015 ? [facility] [place]--just above right lip corner ? DDD (degenerative disc disease), lumbar ? ? Disorder of bone and cartilage, unspecified ? ? Diverticulosis of colon (without mention of hemorrhage) ? ? Mitral valve disorders(424.0) ? ? Nausea and vomiting 07/20/09-07/22/09 ? missed flight ? PMH - PAST MEDICAL HISTORY OF ? ? dvt ? PMH - PAST MEDICAL HISTORY OF ? ? tendonitis left foot ? Pure hypercholesterolemia ? ? Unspecified essential hypertension ? ? Uses hearing aid 2014 ? bilateral ? ? PAST SURGICAL HISTORY PAST SURGICAL HISTORY Procedure Laterality Date ? APPENDECTOMY ? 1996 ? BREAST BIOPSY Right ? ? right breast, benign ? BREAST LUMPECTOMY HX ? 05/16/2019 ? left stereotactic wire localization lumpectomy ? COLONOSCOP W/ OR W/O BRSH SPEC ? 05/12/09 ? Colonoscopy ? COLONOSCOP W/ OR W/O BRSH SPEC ? 05/14/2019 ? Colonoscopy ? KNEE SCOPE,DIAGNOSTIC Right 1999 ? Arthroscopy, knee right ? PAST SURGICAL HISTORY OF ? mid s ? cardiac cath OK ? REMOVAL OF OVARY/TUBE(S) ? 1996 ? Salpingo-oophorectomy bilateral ? [facility] FOR BREAST BX ? 04/18/2019 ? left vvaccuum assisted stereotactic breast biopst w/specimen radiogram and gel marker placement ? TOTAL ABDOM HYSTERECTOMY ? 1996 ? Hysterectomy, SUKHWINDER for benign condition ? TOTAL KNEE REPLACEMENT Right 11/16/2018 ? ? CURRENT MEDICATIONS Current Outpatient Medications Medication Sig Dispense Refill ? atenolol (TENORMIN) 25 mg tablet Take 1 tablet by mouth once daily. 90 tablet 3 ? omeprazole (PRILOSEC) 20 mg capsule Take 1 capsule by mouth once daily. 90 capsule 3 ? quinapril (ACCUPRIL) 10 mg tablet Take 1 tablet by mouth once daily. 90 tablet 3 ? quinapril (ACCUPRIL) 5 mg tablet Take 1 tablet by mouth once daily. (Takes with 10 mg dose of quinapril) 90 tablet 3 ? ibuprofen (MOTRIN) 200 mg tablet Take 200 mg by mouth every 6 hours as needed. ? ? ? fluticasone (FLONASE) 50 mcg/actuation nasal spray Use 1-2 Sprays in each nostril once daily. As directed by ENT ? ? ? Cholecalciferol, Vitamin D3, 10,000 unit cap 1 capsule every other week ? ? ? loratadine (CLARITIN) 10 mg tablet Take 1 tablet by mouth once daily as needed. ? ? ? Psyllium Seed-Sucrose (METAMUCIL) Powd Take 1 Tablespoonful by mouth once daily. (Patient taking differently: Take 1 Tablespoonful by mouth as needed. ) ? 0 ? ASPIRIN 81 MG TAB Take one (1) tablet daily . ? 0 ? THERAPEUTIC MULTIVITAMIN TAB Take one(1) tablet daily. ? 0 ? CALTRATE 600 1,500 MG TAB Take one(1) tablet daily. ? 0 ? No current facility-administered medications for this visit.? ? ALLERGIES:?Chlorthalidone ? PERSONAL HISTORY:? SOCIAL HISTORY Social History ? Tobacco Use ? Smoking status: Former Smoker ? ? Packs/day: 0.50 ? ? Years: 5.00 ? ? Pack years: 2.50 ? ? Types: Cigarettes ? ? Last attempt to quit: 08/01/1973 ? ? Years since quittin.9 ? Smokeless tobacco: Never Used Substance Use Topics ? Alcohol use: Yes ? ? Alcohol/week: 15.0 standard drinks ? ? Types: 1 Glasses of Wine (5oz), 5 Cans of Beer (12oz) per week ? ? Comment: usually a beer or glass of wine a day ? Drug use: No ? FAMILY HISTORY:? FAMILY HISTORY FAMILY HISTORY Problem Relation Age of Onset ? Heart Mother ? from [place] in 70's ? Hypertension Mother ? ? Hypertension Father ? ? Hypertension Sister ? ? Stroke Paternal Grandmother ? ? Coronary Artery Disease Paternal Grandfather ? ? Breast Cancer Sister ? ? other (Plasmacytoma) Sister ? ? Glaucoma Sister ? ? REVIEW OF SYMPTOMS: ??The review of systems data was entered by the nurse and reviewed by me ? There are no exam notes on file for this visit. ? ? PHYSICAL EXAMINATION: ? General: ?The patient is 69 year old female, well nourished, well hydrated in no acute distress. ?The patient is oriented to time, place, and person. ? VITALS:?Blood pressure 160/100, pulse 66, temperature 36.4 ?C (97.5 ?F), temperature source Temporal Artery, weight 73.5 kg (162 lb), SpO2 96 %.?Body mass index is 23.58 kg/m?.? ? HEENT: ?Normal cephalic, ataumatic, pupils are equally round, sclera are anicteric, mucous membranes are moist, oropharynx is clear. ?Neck has no masses, asymmetry or lymphadenopathy. ?Thyroid is unremarkable. ? Respiratory: ?Clear to auscultation and percussion. ?Normal respiratory excursion and pattern. ? Cardiac: ?Examination is regular rate and rhythm. ? Abdominal exam: ?Soft, nontender, ?with no palpable masses. ?No hepatosplenomegaly. ?No palpable hernias. ? Rectal exam: ?exam deferred Extremities: ?no clubbing, cyanosis or edema. ?No adenopathy. ? Breast: ?Visual inspection reveals no retractions, nipple inversion, or skin changes. ?Palpation of the right breast reveals no dominant or suspicious masses, but multiple benign-feeling nodules. ?Palpation of the left breast reveals no dominant or suspicious masses and?a well-healing incision in the 12:00 position consistent with her recent lumpectomy site. ?Axillary exam demonstrates no suspicious masses in either the left or right axilla. ?There is no nipple discharge expressed from either the left or right breast. ? LABORATORY VALUES: As Noted ? RADIOLOGIC STUDIES: ?As Noted ? Assessment ? IMPRESSION: BREAST CANCER -?LEFT??- DCIS?UPSTAGED TO INVASIVE CARCINOMA ? PLAN: ??I plan to perform a left side?sentinel lymph node biopsy with possible axillary dissection. ?The planned surgical procedure was discussed extensively with the patient. ?The risks, benefits, anticipated outcomes and possible complications and alternatives were discussed. ?My staff has also explained the procedure in understandable terms and the patient was given the option to take printed material concerning the planned procedure. ?The patient had the opportunity to ask questions concerning the planned procedure. ?The patient freely consents to the planned procedure. ?? ? Anticipated Surgical Procedure/ CPT Code:?LEFT?SENTINEL LYMPH NODE BIOPSY, radiotracer identification - ?[id number], ?[id number], [id number] ? Anticipated Anesthetic:?General ? Patient weight:??Blood pressure 160/100, pulse 66, temperature 36.4 ?C (97.5 ?F), temperature source Temporal Artery, weight 73.5 kg (162 lb), SpO2 96 %.?BMI: ?Body mass index is 23.58 kg/m?. ? Planned antibiotic:?Ancef 2gm IVPB utilization supervisor to OR ? SCDs needed -?Yes ? Marketing Recruiter Needed -?Yes ?? ? Diagnoses:?(D05.12) Breast neoplasm, Tis (DCIS), left ?(primary encounter diagnosis) (C50.812, ?Z17.1) Malignant neoplasm of overlapping sites of left breast in female, estrogen receptor negative (HCC) ? Return to Clinic: The patient is instructed to follow-up with me?1 week post operatively. ? Satish Flores MD
--- NOTE | 2019-06-25 | IMM_PTH ---
PATIENT: TIFFANIE AGUILAR LOC: [facility] [place] U#:[id number] AGE/SX: 69/F ROOM: RE06/25/[address]: Dr. Satish Flores MD : 1950 BED: DIS: 06/25/2019 SPEC #: [id number] RECD: 06/26/19 14:45 STATUS: SOUDee REQ #: [id number] LANDY: 06/25/19 00:[address]: Satish Flores DEPT: IMMUNOHISTOCHEMISTRY RECD BY: Alia Beach ENTERED: 06/26/19 14:45 SP TYPE: IMMUNO OTHR DR: Dr. Neela Viera MD Tissues: A - Axillary lymph node, NOS B - Axillary lymph node, NOS Procedures: Pankeratin (add) CK7 (initial) PHYSICIAN & INSTITUTION [place] [id number] SPECIMEN INFORMATION: Tissue Source: A - Left axillary sentinel lymph node, B - Left axillary sentinel lymph nodes Clinical Info: Left breast cancer Specimen Number: [id number] A & B CPT code: 56632 x2, 89573 x2 METHODOLOGY: Deparaffinized sections of prefer/formalin-fixed tissue or PAP/DQ stained slides are incubated with monoclonal/polyclonal antibodies/oligonucleotide probes. Localization is made via biotin free immunoperoxidase method. Appropriate controls are performed and reacted as expected. Results on target cell population are indicated in the following table: RESULTS: ANTIBODY / CLONE RESULT Block A CK7 (OV-TL12/30) negative AE1-3 (AE1/AE3/PCK26) negative Block B CK7 (OV-TL12/30) negative AE1-3 (AE1/AE3/PCK26) negative These tests were developed and their performance characteristics determined by [facility]. They may not have been cleared or approved by the U.S. Food and Drug Administration. The FDA has determined that such clearance or approval is not necessary. The above immunohistochemical/dualISH markers are ordered and reviewed by the Pathologist. INTERPRETATION: A. Left axillary sentinel lymph node, biopsy: One out of one lymph node negative for carcinoma. B. Left axillary sentinel lymph nodes, biopsy: Two out of two lymph nodes negative for carcinoma. AM:emperatriz 06/27/19
--- NOTE | 2019-06-25 | AXNB_PTH ---
PATIENT: TIFFANIE AGUILAR LOC: [facility] – [place] U#:[id number] AGE/SX: 69/F ROOM: RE06/25/[address]: Dr. Satish Floers MD : 1950 BED: DIS: 06/25/2019 SPEC #: [id number] RECD: 06/25/19 12:37 STATUS: PRATIMA RENelson #: [id number] LANDY: 06/25/19 00:[address]: Satish Flores DEPT: SURGICAL PATHOLOGY RECD BY: Alia Beach ENTERED: 06/25/19 13:55 SP TYPE: AX NODE BX OTHR DR: Dr. Neela Viera MD Tissues: A - Axillary lymph node, NOS B - Axillary lymph node, NOS C - Axillary lymph node, NOS Procedures: Frozen Section (charge) Surgery Specimen Level IV Surgery Specimen Level V HEADER OPERATION: [place] lymph node with radiotracer PRE-OP DIAGNOSIS: Left breast cancer TISSUE SUBMITTED: A - Second lymph node, left breast, B - Radioactive lymph node, left breast, marked by stitch, C - Lymph nodes, left breast for permanent FROZEN SECTION DIAGNOSIS A. Left axillary sentinel lymph node, biopsy: One out of one lymph node, negative for carcinoma. B. Left axillary sentinel lymph nodes, biopsy: Two out of two lymph nodes, negative for carcinoma. AM:emperatriz 06/25/19 Case has been reviewed in consultation with Dr. Willard who concurs with the above diagnosis. IDC:SJ MICROSCOPIC DIAGNOSIS A. Left axillary sentinel lymph node, biopsy: One out of one lymph node, negative for carcinoma. See comment. B. Left axillary sentinel lymph nodes, biopsy: Two out of two lymph nodes, negative for carcinoma. See comment. C. Left breast tissue, biopsy: Fibrofatty and fibrovascular tissue. No evidence of malignancy. See comment. AM:emperatriz 06/26/19 COMMENT A & B. Immunohistochemistry ([id number]) supports the above diagnosis. C. No lymph nodes are identified. Reference is made to the patient's left breast lumpectomy from 05/18/19 ([id number]) in which invasive ductal carcinoma was identified. MICROSCOPIC DESCRIPTION Slides are reviewed. GROSS DESCRIPTION A - Received fresh for frozen section consultation labeled with the patient's name is a specimen designated second radioactive lymph node, left breast. The specimen consists of an irregular fragment of macias-yellow fibrofatty tissue measuring 3 x 1.5 x 0.5 cm. Dissection reveals a single nodule measuring 1 cm in greatest dimension. The nodule is submitted in its entirety for frozen section consultation in one block. / AM:emperatriz 06/25/19 B - Received fresh for frozen section consultation labeled with the patient's name is a specimen designated radioactive lymph node, left breast. The specimen consists of an irregular fragment of macias-yellow fibrofatty tissue measuring 4 x 2.5 x 1 cm. Dissection reveals two nodules ranging in size from 0.7 to 1 cm. The nodules are submitted in their entirety for frozen section consultation in one block. / AM:emperatriz 06/25/19 C - Received fresh labeled with the patient's name is a specimen designated lymph nodes, left breast for permanent. The specimen consists of two pieces of yellow adipose tissue measuring in aggregate 4 x 2.5 x 1 cm. No obvious lymph node tissue is identified. The entire specimen is submitted in three cassettes. / SJ:emperatriz 06/25/19 TC:5 CPT: 38008 x2, 18783, 60098 x2
[2019-06-25] MEDS: Lactated Ringers 1,000 ML 75 ML IV (07:00)
--- NOTE | 2019-06-25 08:30 | NM_ITS ---
1.1 MCI of Tc-99 sulfur colloid was presented in 4 1cc syringes , subdermal injections were done at at 12, 3, 6 and 9 O'clock around the scar where the patient had lumpectomy each one of these injections formed a wheal, this was followed by massage of the area by the patient, she was transferred to the relevant section to check the radioactivity in any lymph node. The patient tolerated the procedure. NM/Lymph Node Injection Only IMPRESSION: Uneventful sentinel injection Electronically Signed: Young Taylor, at 9:43 EST Tel , Service support ,
[2019-06-25 08:54] VITALS: BP 180/91; PULSE 63; RESP 16; TEMP 36.6; O2SAT 99; BMI 22.6
[2019-06-25] MEDS: Isosulfan Blue 1% 5 ML Vial (11:27)
[2019-06-25] MEDS: Cefazolin 2 GM in 0.9% Normal Saline 100 ML IV (11:36)
--- NOTE | 2019-06-25 12:27 | BI_ITS ---
SURGICAL BREAST SPECIMEN RADIOGRAPH CLINICAL: Document presence of lesion in biopsy specimen. FINDINGS: Specimen shows presence of irregular density and another well-demarcated density. No microcalcifications noted Pathology is pending and an addendum to the biopsy report will be performed after the final pathologic diagnosis is rendered. Electronically Signed: Young Taylor, at 15:04 EST Tel , Service support , BI/Breast Biopsy Specimen
[2019-06-25] MEDS: Bupivacaine Mpf 0.5% 30 ML VIAL (12:42)
--- NOTE | 2019-06-25 12:50 | PCM.OPRPT ---
Report of Operation Date of Procedure: 06/25/19 Pre-Operative Diagnosis: left breast cancer Post-Operative Diagnosis: left breast cancer 3/3 negative lymph nodes Surgery/Procedure Performed:: left axillary sentinal lymph node biopsy with radiotracer and lymphazurin blue dye Specimen's removed: left axillary nodes Estimated Blood Loss (mL): 10 Fluids Replaced: 500 Description of Procedure: The patient was then brought to the operative suite. Sign was performed verifying patient, site, position, SCIP antibiotic prophylaxis-2 g of Ancef and DVT prophylaxis with SCDs. Following an LMA anesthesia, 5 cc of a 50-50 mixture of lymphazuriblue and normal saline was injected into sappey's plexus. The breast was then massaged. Evaluation of the axilla with the neoprobe demonstrated an area of activity in the low axilla just lateral to the pectoralis muscle. This site was marked. The patient?s left breast, axilla, arm and neck were then prepped and draped in the usual fashion. Timeout was performed verifying patient, site, position. Local anesthetic was injected at the marked site and the incision made in the low anterior axilla. Dissection carried down through subcutaneous tissues. A blue lymphatic duct was identified and tracked back to no nicely identifiable nodes.. the neoprobe was then used to identify lymph nodes within the axillary fat pad. 2 lymph nodes were identified and dissected and removed. The largest lymph node in this group had a count of 400. Scanning the armpit again demonstrated radioactivity. An additional node was then dissected free from the surrounding structures. After was removed, it was evaluated with the neoprobe and contained approximately 200 counts. The neoprobe was then used to assess the axilla through the incision. No additional lymph nodes were palpated. There was an area running along the lymphatic duct which had approximately 15 counts. This area was then dissected and excised and sent for permanent specimen. A small clip was placed along the proximal blue lymphatic duct. There was good hemostasis in the small sentinel node dissection area. Subcutaneous tissues closed with interrupted 3-0 Vicryl suture. Skin was closed with a running 4-0 Biosyn subcuticular suture. Verbal report from the pathologist demonstrated 3 negative left sentinel lymph nodes. - Admit VTE Documentation VTE Present on Admission: No VTE Mechan Device Prophylaxis: SCD's VTE Pharm Prophylaxis ordered?: No
[2019-06-25 12:57] VITALS: BP 136/83; BP 180/91; PULSE 88; RESP 16; TEMP 36.3; O2SAT 97
[2019-06-25 13:00] VITALS: BP 148/89; BP 180/91; PULSE 88; RESP 16; O2SAT 98
--- NOTE | 2019-06-25 13:02 | DCINST_ITS ---
Discharge Diet: No Restrictions Discharge Activity: May Not Drive - for 2-3 days or while taking narcotic pain meds. May shower in (days): 1 Lifting Restrictions: 10 pounds for 1 week. Call your doctor if your incision/area has: Continuous Slow Oozing, Sudden In creased Bleeding Call your doctor if you observe: Fever of 101 or Higher Suture Line Care: Avoid Pulling/Pushing, Avoid Pinching/Bending Remove Dressing in (days):: 1 - Remove bulky dressing tomorrow. May leave any opsite dressing for 3-4 days. Keep dressing in place until your follow-up appointment. Additional Dressing/Incision Instructions:: May leave any opsite dressing for 3- 4 days. may shower over the dressing and once the dressing is removed Allergies/Adverse Reactions: Allergies chlorthalidone Adverse Reaction (Verified 06/25/19 08:52) Other Medications to take at Discharge Atenolol [Tenormin (beta court)] 25 mg PO DAILY 09/20/13 Calcium (Elemental) [Caltrate-600] 600 mg PO DAILY@0800 09/20/13 Ergocalciferol [Vitamin D] 50,000 unit PO Q14D 09/20/13 Omeprazole [Prilosec] 20 mg PO DAILY 09/20/13 Quinapril HCl [Accupril] 15 mg PO DAILY 09/20/13 Aspirin [Aspir-Low] 81 mg PO DAILY 10/24/17 Fluticasone 0.05% [Flonase Nasal [place]] 1 spray NASAL DAILY PRN 10/24/17 Loratadine [Claritin] 10 mg PO DAILY PRN 10/24/17 Multivitamin [Multiple Vitamins] 1 each PO DAILY 10/24/17 Hydrocodone Bitart/Apap 5-325 [[place] 5/325] 1 - 2 tab PO Q6H PRN PRN 5 Days #10 tab 06/25/19 The following prescriptions were given: Hydrocodone Bitart/Apap 5-325 [[place] 5/325] 1 - 2 tab PO Q6H PRN PRN 5 Days #10 tab PRN Reason: Pain Score 1-12/08 Prescription Printed Primary Care Physician: Neela Viera MD [Primary Care Provider] - Please Follow Up With: Satish Flores MD When: 10 days
[2019-06-25 13:15] VITALS: BP 140/83; BP 180/91; PULSE 85; RESP 16; TEMP 36.4; O2SAT 95
[2019-06-25 14:10] VITALS: BP 171/91; BP 180/91; PULSE 78; RESP 16; TEMP 36.1; O2SAT 98
== END 2019-06-25 14:23 | disposition home or self-care (01) ==
LOC: SDC 08:11 → AC 08:12
PROVIDERS: Family Provider Internal Medicine; PCP Internal Medicine; Referring Provider Surgery; Visit Provider Surgery
PROC: (CPT 19301; principal; 2019-06-25 11:00)
DX: C50.912 Malignant neoplasm of unspecified site of left female breast (principal); E78.00 Pure hypercholesterolemia, unspecified; I10 Essential (primary) hypertension; K21.9 Gastro-esophageal reflux disease without esophagitis; Z80.3 Family history of malignant neoplasm of breast; Z87.891 Personal history of nicotine dependence; Z86.718 Personal history of other venous thrombosis and embolism; Z85.819 Personal history of malignant neoplasm of unspecified site of lip, oral cavity, and pharynx
CPT/HCPCS: 38525; 38900; 38792; 76098; 88305; 88307; 88331; 88341; 88342; A9541; J7120; J2405; Q9968

== ENCOUNTER 2020-09-24 14:22 | Outpatient (RCR) | payer MEDICARE, OTHER, SELFPAY ==
[2019-08-08 09:05] VITALS: BMI 23.6
== END 2020-09-24 23:59 ==
LOC: IMMUN 14:22
PROVIDERS: PCP Internal Medicine; Referring Provider Family Medicine; Visit Provider Family Medicine
DX: Z23 Encounter for immunization (principal)
CPT/HCPCS: 0011A; 0012A; 91301

== ENCOUNTER → 2023-04-06 | Outpatient (CLI) | payer MEDICARE, SELFPAY ==
--- NOTE | 2023-04-06 09:55 | NM_ITS ---
CLINICAL: 73-year-old female with history of clinical thyrotoxicosis. I-123 THYROID UPTAKE and SCAN COMPARISON: None available FINDINGS: The patient was administered a 297 uCi I-123 capsule by mouth. The 4-hour I-123 radioactive iodine thyroidal uptake was calculated to be 30.9 % (normal 5 to 25 %). The 24-hour I-123 radioactive iodine thyroidal uptake was calculated to be 68.1 % (normal 5 to 40 %). The I-123 thyroid scan demonstrates homogeneous increased radiopharmaceutical concentration throughout left lobe of a U-shaped thyroid gland relative to the right lobe. There are no colloidal parenchymal hypofunctioning-cold nodules noted in either lobe of the thyroid gland. NM/Thyroid Uptake Single or Mult IMPRESSION: 1. ABNORMAL ELEVATED 4- and 24-hour I-123 radioactive iodine thyroidal uptakes. 2. 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 Electronically Signed: Satish Erazo DO at 20:25 EDT ,
== END | disposition home or self-care (01) ==
LOC: NM 09:53
PROVIDERS: PCP Internal Medicine; Referring Provider Internal Medicine Endocrinology, Diabetes & Metabolism; Visit Provider Internal Medicine Endocrinology, Diabetes & Metabolism
DX: E05.90 Thyrotoxicosis, unspecified without thyrotoxic crisis or storm (principal)
CPT/HCPCS: 78012; A9516

== ENCOUNTER 2023-05-19 05:54 | Day surgery (SDC) | payer MEDICARE, SELFPAY ==
[2023-05-19 06:24] VITALS: BP 153/78; PULSE 64; RESP 14; TEMP 36.4; O2SAT 100; BMI 20.5
[2023-05-19] MEDS: Lactated Ringers 1,000 ML 15 ML IV (06:46)
[2023-05-19 06:49] LABS: Hematocrit 43.8 % (37-47); Hemoglobin 13.9 g/dL (12.0-15.0); Mean Corp Hgb Conc 31.7 g/dL (32-36); Mean Corpuscular Hgb 28.9 pg (27.0-32.0); Mean Corpuscular Volume 91.1 fL (81-99); Mean Platelet Vol. 8.7 fl (6.2-12.0); Platelet Count 221 K/mm3 (150-450); RBC Distribution Width CV 12.6 % (11.6-14.6); RBC Distribution Width SD 42.2 fl (35.1-43.9); Red Blood Count 4.81 M/mm3 (4.2-5.4); White Blood Count 4.7 K/mm3 (4.4-11.0)
[2023-05-19 07:05] LABS: Anion Gap 4 (5-15); BUN 13 mg/dL (7-18); BUN/Creat Ratio 22.3 RATIO (10-20); Calcium,Total 9.3 mg/dL (8.5-10.1); Chloride 108 mmol/L (98-107); Creatinine, Serum 0.58 mg/dL (0.55-1.02); EST Glomerular Filtration Rate 108 mL/min (>60); Est Glom Filt Rate - Afr Amer 130 mL/min (>60); Estimated Creatinine Clearance 50.65 ml/min; Glucose 103 mg/dL (74-106); Potassium 3.8 mmol/L (3.5-5.1); Sodium Level 140 mmol/L (136-145)
[2023-05-19] MEDS: Cefazolin 2 GM in 0.9% Normal Saline (100mL Bag) 100 ML IV (07:52)
[2023-05-19 08:15] VITALS: BP 110/68; BP 153/78; PULSE 59; RESP 16; TEMP 36.1; O2SAT 100
--- NOTE | 2023-05-19 08:19 | DCINST_ITS ---
Discharge Instructions Diet Discharge Diet: No restrictions Activity Discharge Activity: Return to Normal Activity Dressing / Incision Call your doctor if you observe: Fever of 101 or Higher, Inability to urinate and Inability to have a bowel movement Follow Up Care Please Follow Up With: Luci Nelson MD When: The office will call to make a follow-up appointment Test Results: Test results from this visit will be discussed in further detail at your follow- up appointment, if applicable. Discharge Plan Admission Attending Provider: Luci Nelson Primary Care Provider: Neela Viera Discharge Orders/Prescriptions Prescriptions: New cephalexin [cephalexin] 500 mg capsule 500 mg PO Q12 3 Days Qty: 6 0RF Continued atenolol 25 MG tablet 25 mg PO 1700 calcium carbonate [Caltrate 600] 600 MG tablet 600 mg PO DAILY@0800 omeprazole 20 MG capsule 20 mg PO DAILY multivitamin [Multiple Vitamins] 1 EACH tablet 1 ea PO DAILY aspirin [Aspir-Low] 81 MG tablet,delayed release (DR/EC) 81 mg PO DAILY fluticasone propionate 1 SPRAY spray,suspension 1 spray NASAL DAILY PRN (Reason: Allergies) loratadine [Allergy Relief (loratadine)] 10 MG tablet 10 mg PO DAILY PRN (Reason: Allergies) atenolol 50 mg tablet 50 mg PO 0800 lisinopril 20 mg tablet 20 mg PO DAILY cholecalciferol (vitamin D3) [Vitamin D3] 25 mcg (1,000 unit) capsule 25 mcg PO DAILY Referrals / Follow Up: Neela Viera MD [Primary Care Provider] - Disposition Disposition (needs filled in before D/C Order can be placed): Home, Self Care
[2023-05-19 08:20] VITALS: BP 122/78; BP 153/78; PULSE 58; RESP 16; O2SAT 100
--- NOTE | 2023-05-19 08:21 | OP.PCM_ITS ---
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 After evaluation it was determined that she had a urethral stricture and the decision was made to dilate this under anesthesia. Informed consent was obtained. The patient was taken to the operating room and placed on the operating room table. Anesthesia monitored the head, neck, airway, IV access and vital signs throughout the case. Once anesthesia was appropriately administered, the patient was placed into dorsolithotomy position was prepped and draped in usual sterile fashion. The urethra was sequentially dilated with urethral stones starting from [address] a nd going all the way up to 32 [address] [place]. There is definitely cracking of the urethra with bleeding. The cystoscope was then inserted through the urethra under direct visualization into the urinary bladder. The bladder mucosa in its entirety was visualized and found to be without evidence of ulceration, mass or abnormality. There was no foreign body. The ureteral orifices were located in the correct anatomic position. There is no evidence of pelvic organ prolapse. At this time the bladder was emptied and the cystoscope was removed. The patient was awakened and taken to the recovery room in good condition. There were no complications during this procedure. Grafts/Implants Used: None Complications None Admit VTE Documentation VTE Present on Admission: Yes VTE Mechan Device Prophylaxis: SCD's VTE Pharm Prophylaxis ordered?: No Reason prophylaxis not ordered:: Treatment Not Indicated
[2023-05-19 08:25] VITALS: BP 139/72; BP 153/78; PULSE 55; RESP 16; O2SAT 100
[2023-05-19 08:30] VITALS: BP 134/70; BP 153/78; PULSE 62; RESP 16; TEMP 36.1; O2SAT 100
[2023-05-19 09:03] VITALS: BP 153/78
== END 2023-05-19 09:16 | disposition home or self-care (01) ==
LOC: SDC 05:54 → AC 05:55
PROVIDERS: PCP Internal Medicine; Referring Provider Urology; Visit Provider Urology
PROC: 0T7D8ZZ Dilation of Urethra, Via Natural or Artificial Opening Endoscopic (ICD-10-PCS; CPT 52281; principal; 2023-05-19 07:20)
DX: N35.92 Unspecified urethral stricture, female (principal); Z85.3 Personal history of malignant neoplasm of breast; I10 Essential (primary) hypertension; K21.9 Gastro-esophageal reflux disease without esophagitis; E78.00 Pure hypercholesterolemia, unspecified; E05.90 Thyrotoxicosis, unspecified without thyrotoxic crisis or storm; Z87.891 Personal history of nicotine dependence
CPT/HCPCS: 53660; 00910; 80048; 85027; J7120; J2405

== ENCOUNTER 2024-10-02 11:20 | Emergency (ER) | payer MEDICARE, SELFPAY ==
[2024-10-02 11:20] VITALS: BP 149/90; PULSE 58; RESP 16; TEMP 36.6; O2SAT 100; BMI 24.0
[2024-10-02 13:20] VITALS: PULSE 58; RESP 14; O2SAT 98
--- NOTE | 2024-10-02 13:47 | RAD_ITS ---
PROCEDURE: KNEE 4 OR MORE VIEWS REASON FOR EXAM: Anterior knee swelling and bruising following a fall. TECHNIQUE: 4 view(s) of the left knee COMPARISON: None. FINDINGS: No fracture. No suspicious bone lesion. Marked degree of joint space narrowing involving the medial compartment of the knee joint. Mild degree of degenerative changes of the lateral compartment. Normal alignment. No effusion. Prepatellar soft tissue swelling. No evidence of joint effusion. RAD/Knee 4 or More Views IMPRESSION: DEGENERATIVE OSTEOARTHROSIS. NO ACUTE FINDINGS. Reading Location: [id number]
--- NOTE | 2024-10-02 13:47 | RAD_ITS ---
PROCEDURE: RIBS UNI MIN 3V W/PA CHEST REASON FOR EXAM: Pain under the left breast following a fall. TECHNIQUE: Frontal and left oblique views of the left ribs COMPARISON: None FINDINGS: No displaced rib fractures are identified. No suspicious lytic or blastic rib lesions. Calcified mitral valve annulus. Hyperinflation and changes compatible with COPD. Degenerative osteoarthritis of the left shoulder joint. There is a 2.4 cm by 1.7 cm bony protuberance in the medial proximal metaphysis of the left humerus suggestive of osteochondroma. RAD/Ribs Uni Min 3V w/PA Chest IMPRESSION: NO EVIDENCE OF ACUTE RIB FRACTURE OR PNEUMOTHORAX. Degenerative changes of the left shoulder joint with findings suggestive of an osteochondroma. Reading Location: [id number]
[2024-10-02 15:00] VITALS: BP 118/62; PULSE 87; RESP 16; TEMP 36.6; O2SAT 100
--- NOTE | 2024-10-02 15:28 | EX.ED.GENINJ ---
HPI History of Present Illness Chief Complaint: Fall Informant: patient Narrative Narrative: Patient states she tripped on concrete 3-4 days ago while walking her dog. She fell to both of her knees, and lightly bruised the left side of her face/forehead, and hit her chest wall. Most of this is not bothering her very much except for her left knee, she was mostly concerned about the appearance of significant bruising and edema distal to this. She states this is swollen similarly to when she was diagnosed with a DVT and she wanted to make sure she did not have another 1. She is no longer on an anticoagulant. She denies any dyspnea. She denies any headaches, vision changes, nausea vomiting, other concussion symptoms. She states the right knee is not bothering her at all. The left knee was bothering her more, but she is doing a lot better on it now and able to walk on it without any difficulty she was more concerned about the appearance. [facility] Medical History Wears hearing aid Wears glasses Post-menopausal Cancer Alcohol use Thyroid disease Arthritis High cholesterol Difficulty swallowing Gastric reflux Former smoker History of edema History of stress test FH: total abdominal hysterectomy and bilateral salpingo-oophorectomy HTN (hypertension) Hypercholesteremia DVT (deep venous thrombosis) Mitral valve disorder Diverticulosis of colon DDD (degenerative disc disease), lumbar BCC (basal cell carcinoma of skin) DCIS (ductal carcinoma in situ) of breast Home Medications ?Medication ?Instructions ?Recorded ?Last Taken ?Type atenolol 25 mg tablet 25 mg PO 1700 BP 09/20/13 05/18/23 History calcium carbonate (Caltrate 600) 600 mg PO DAILY@0800 SUPPLEMENT 09/20/13 05/18/23 History omeprazole 20 mg capsule,delayed 20 mg PO DAILY REFLUX 09/20/13 05/19/23 History release aspirin 81 mg tablet,delayed 81 mg PO DAILY HEART HEALTH 10/24/17 05/18/23 History release (Aspir-Low) fluticasone propionate 50 1 spray DAILY PRN Allergies 10/24/17 05/18/23 History mcg/actuation nasal spray,suspension loratadine 10 mg tablet (Allergy 10 mg PO DAILY PRN Allergies 10/24/17 05/18/23 History Relief (loratadine)) multivitamin (Multiple Vitamins 1 ea PO DAILY SUPPLEMENT 10/24/17 05/18/23 History tablet) atenolol 50 mg tablet 50 mg PO 0800 05/10/23 05/19/23 History cholecalciferol (vitamin D3) 25 25 mcg PO DAILY 05/10/23 05/18/23 History mcg (1,000 unit) capsule (Vitamin D3) lisinopril 20 mg tablet 20 mg PO DAILY 05/10/23 05/19/23 History cephalexin 500 mg capsule 500 mg PO Q12 post-operative 3 05/19/23 Unknown Rx days #6 CAPSULES Allergy/AdvReac Type Severity Reaction Status Date / Time chlorthalidone AdvReac Other Verified 10/02/24 11:22 Family History Father Hypertension Mother Myocardial infarction Hypertension Grandmother CVA (cerebral vascular accident) Grandfather CAD (coronary artery disease) Sister Breast cancer Surgical History History of total right knee replacement History of cardiac catheterization H/O arthroscopy of right knee History of colonoscopy History of lumpectomy History of breast biopsy Hx of appendectomy Social History Smoking Status: Former smoker ROS ROS ED Constitutional Constitutional ED: Denies chills or fever(s) Cardiovascular Cardiovascular: Reports chest pain Respiratory/Chest Respiratory/Chest: Denies cough or dyspnea Gastrointestinal Gastrointestinal: Denies abdominal pain, diarrhea, melena, nausea or vomiting Musculoskeletal Musculoskeletal: Reports extremity pain; Denies neck pain Integumentary Denies Abrasions, rash or wounds Neurologic Neurologic: Denies paresthesias or weakness Hematologic/Lymphatic Hematologic/Lymphatic: Reports easy bruising EXAM Physical Exam Const Vital Signs: 10/02/24 11:20 10/02/24 12:35 10/02/24 13:20 Temperature 97.8 F Temperature Source Oral Pulse Rate 58 L 58 L Respiratory Rate 16 14 Respiratory Effort Normal Blood Pressure 149/90 H Blood Pressure Mean 109 Pulse Ox 100 98 Oxygen Delivery Method Room Air Room Air Positive well nourished and well developed General Appearance ED: well developed and NAD HEENT HEENT Narrative: Small contusion and tenderness without hematoma or bony deformity left lateral superior orbital brim, no mid facial bony tenderness or instability. No epistaxis. No Kevin sign or periorbital ecchymosis. No CSF otorhinorrhea. Eyes PERRL and EOMs intact bilaterally General Eye ED: Yes other Other Details: No pain with extraocular movements, no entrapment. Neck full ROM and supple Chest Wall inspection of chest normal Chest Narrative: Mild chest wall tenderness left rib cage, it is retromammary so palpation is limited, but when palpating to the sides, there is no crepitus or subcutaneous emphysema, breath sounds are equal bilaterally Resp normal respiratory effort and clear to auscultation bilaterally Resp Narrative: No splinting with deep inspiration Back/Spine normal ROM and normal to inspection Extremity Extremity Narrative: Small contusion medial anterior right knee, full range of motion no bony tenderness or effusion. In the left knee, there is a hematoma anterolateral, extensive ecchymosis surrounding the knee and into the proximal lower leg along with some edema in the leg down toward the ankle. No calf tenderness. Good range of motion of the knee. Probable mild effusion. Neuro oriented x3, no focal motor deficits and no sensory deficits noted Sensorium / Orientation: alert Psych mental status grossly normal and thought process normal Skin no wounds Rashes: no rashes MDM MDM MDM Narrative Medical decision making narrative: With regards to her myofascial contusion she does not have any symptoms of head injury and this occurred 3 to 4 days ago so I do not think she needs advanced imaging of the brain, nor the face. With regards to the chest have a low suspicion for pulmonary contusion or a rib fracture or PTX, I did obtain 4 view x-ray series of the left rib cage including a PA chest, my interpretation it is negative for those things, radiology in agreement. I obtained 4 view x-ray series of the left knee on my interpretation there is no acute fractures or obvious effusion/hemarthrosis. She does have a significant hematoma anterior left knee, and the extensive bruising that she has caudal to this is related not indicative of a DVT, and the edema is related as well and not indicative of a DVT. Furthermore even if she did have a DVT right now I would not advise anticoagulating her, because of the extensive hematoma. She is not symptomatic of anemia so I do not think we need to do blood counts right now, I advised her that this will likely take weeks to resolve, and will continue to travel down with gravity, and to expect that eventually the edema goes away. If it does not she should follow-up she is comfortable with that plan. Radiography Diagnostic Testing: Clinical Impression(s) from Imaging Studies Knee X-Ray 10/02/24 13:47 IMPRESSION: DEGENERATIVE OSTEOARTHROSIS. NO ACUTE FINDINGS. Reading Location: [facility] Ribs w/Chest X-Ray 10/02/24 13:47 IMPRESSION: NO EVIDENCE OF ACUTE RIB FRACTURE OR PNEUMOTHORAX. Degenerative changes of the left shoulder joint with findings suggestive of an osteochondroma. Reading Location: [id number] Discharge Plan Triage Chief Complaint: Fall ED Provider: Braden Long Dx/Rx/DC Orders Clinical Impression: Traumatic hematoma of left knee, Contusion of knee, right, Chest wall contusion, Contusion of face, Fall from slip, trip, or stumble Instructions: Bruises (Contusions), ED Hematoma Prescriptions: No Action atenolol 25 MG tablet 25 mg PO 1700 calcium carbonate [Caltrate 600] 600 MG tablet 600 mg PO DAILY@0800 omeprazole 20 MG capsule 20 mg PO DAILY multivitamin [Multiple Vitamins] 1 EACH tablet 1 ea PO DAILY aspirin [Aspir-Low] 81 MG tablet,delayed release (DR/EC) 81 mg PO DAILY fluticasone propionate 1 SPRAY spray,suspension 1 spray NASAL DAILY PRN (Reason: Allergies) loratadine [Allergy Relief (loratadine)] 10 MG tablet 10 mg PO DAILY PRN (Reason: Allergies) atenolol 50 mg tablet 50 mg PO 0800 lisinopril 20 mg tablet 20 mg PO DAILY cholecalciferol (vitamin D3) [Vitamin D3] 25 mcg (1,000 unit) capsule 25 mcg PO DAILY cephalexin [cephalexin] 500 mg capsule 500 mg PO Q12 3 Days Qty: 6 0RF Primary Care Provider: Neela Viera Referrals: Neela Viera MD [Primary Care Provider] - 1 Week if not improving Print Language: [place] Disposition Disposition: Home, Self Care
== END 2024-10-02 15:40 | disposition home or self-care (01) ==
PROVIDERS: Emergency Provider Emergency Medicine; PCP Internal Medicine; Visit Provider Emergency Medicine
DX: S80.02XA Contusion of left knee, initial encounter (principal); S80.01XA Contusion of right knee, initial encounter; Z87.891 Personal history of nicotine dependence; E78.00 Pure hypercholesterolemia, unspecified; I10 Essential (primary) hypertension; S20.20XA Contusion of thorax, unspecified, initial encounter; Z86.718 Personal history of other venous thrombosis and embolism; W01.198A Fall on same level from slipping, tripping and stumbling with subsequent striking against other object, initial encounter
CPT/HCPCS: 71101; 73564; 99282